=== PATIENT | female | born 1995 | race Caucasian/White ===

== ENCOUNTER 2018-06-05 20:34 | Emergency (ER) | payer MEDICAID, SELFPAY ==
[2018-06-05 20:41] VITALS: BP 141/75; PULSE 77; RESP 16; TEMP 37; O2SAT 98
--- NOTE | 2018-06-05 20:51 | ED.GENADUL ---
Disposition Clinical Impression: Palatal mass Disposition: HOME Condition: Stable Instructions: Lipoma (GEN) Additional Instructions: You were given instructions regarding a lipoma which is a fatty growth. You may not have a lipoma. At this point in time the differential diagnosis includes cyst, adenoma, impacted tooth, local tissue inflammation due to trauma or infection, or another type of hard palate mass. You may not need antibiotics, but since the area is painful, you may be developing an early infection. Follow-up with your dentist next week for reevaluation and for referral to oral surgery if indicated. Return to the emergency department with any worsening or new concerning symptoms such as difficulty swallowing, fever, or any other concerns. Prescriptions: Penicillin V Potassium 500 mg PO QID 7 Days tablet Medical Decision Making - Medical Decision Making 22 yo female who presents with tender hard palate mass for the past 2 days. It is approximately 1 x 1 cm tender soft mass noted to be behind the bicuspid and lateral incisor on the right upper jaw. It is not in the midline making torus palatinus unlikely. There is no dental trauma or dental abscess. The area appears soft but does not appear fluctuant or indurated and she has no fever or dental pain making abscess unlikely. Her oropharynx is normal to inspection and uvula midline. She appears nontoxic. Differential diagnosis includes cyst, adenoma, impacted tooth. The area appears soft and somewhat mobile and is not indurated, making malignancy less likely however further specialist evaluation can assist in this diagnosis. As she states it has grown in size over the past 2 days, will give a dose of decadron to help with any further inflammation. She is currently on her menses and has nexplanon and denies chance of . I explained that the increase in size can be due to local irritation. She denies any known foreign body of food or trauma to area. She has a local dentist in [place]. She was instructed to call them next week to schedule a follow-up appointment for reevaluation and for referral to oral surgery if indicated. As the area is tender, this can be due to local irritation rather than infection, but we will send home with a prescription for penicillin to start for risk for early infection. Patient was instructed to return here with any concerns. History of Present Illness - General Chief complaint: DentalOral Stated complaint: ORAL ISSUE Time Seen by Provider: 06/05/18 20:35 Source: patient Mode of arrival: ambulatory Limitations: no limitations - History of Present Illness Initial comments: Patient is a 22-year-old female who presents with a tender lump on the upper part of her mouth near her teeth for the past 2 days. Patient states the area has grown in size since she first noticed it. States she feels like eating irritates it and causes more pain when her tongue rubs against it. Patient denies known fever, difficulty swallowing, difficulty breathing, dental pain, dental trauma, or previous similar history. - Related Data Etonogestrel [Nexplanon] 68 mg SQ ONCE #1 implant 01/27/18 Penicillin V Potassium 500 mg PO QID 7 Days tablet 06/05/18 Allergies Allergy/AdvReac Type Severity Reaction Status Date / Time hydrocodone AdvReac Nausea Unverified 01/27/18 15:15 environmental allergies Allergy Mild iching, Uncoded 05/28/18 09:25 rashes Review of Systems Constitutional: denies: chills, fever Eyes: denies: eye pain ENT: denies: ear pain, throat pain, dental pain Respiratory: denies: cough, shortness of breath Cardiovascular: denies: chest pain, dyspnea on exertion Gastrointestinal: denies: abdominal pain, nausea, vomiting Genitourinary: denies: urgency, dysuria, frequency Musculoskeletal: denies: back pain Skin: denies: rash, lesions Neurological: denies: headache, weakness, numbness Past Medical History - Past Medical History Medical history: no medical history Surgical history: appendectomy - Social History Smoking status: never smoker Alcohol use: none Drug use: none General Exam - General Limitations: no limitations General appearance: alert, in no apparent distress - Eye Eye exam: Present: EOMI - ENT ENT exam: Present: normal orophraynx, mucous membranes moist, TM's normal bilaterally, other (approximate 1 x 1 cm soft mass noted in the right upper hard palate behind cuspid and lateral incisor. The area is tender to palpation but there is no bleeding, fluctuance, induration or discharge. There is no surrounding dental trauma, dental caries, or dental abscess. Normal posterior pharynx.) - Neck Neck exam: Present: normal inspection. Absent: lymphadenopathy - Respiratory Respiratory exam: Absent: respiratory distress - Cardiovascular Cardiovascular Exam: Present: regular rate - Neurological Exam Neurological exam: Present: alert, oriented X3 - Psychiatric Psychiatric exam: Present: normal affect - Skin Skin exam: Present: warm, dry, intact Course Vital Signs - 24 hr 06/05/18 20:41 Temperature 98.6 F Pulse 77 Respiratory 16 Rate Blood Pressure 141/75 Pulse Oximetry 98
[2018-06-05] MEDS: Dexamethasone 10 MG/ML VIAL PO (21:03)
== END 2018-06-05 21:07 | disposition home or self-care (01) ==
LOC: ER 06-06 10:14
PROVIDERS: Emergency Provider Physician Assistant; PCP Family Medicine
DX: R22.0 Localized swelling, mass and lump, head (principal)
CPT/HCPCS: 99283; J1100

== ENCOUNTER 2018-11-08 19:22 | Emergency (ER) | payer MEDICAID, SELFPAY ==
[2018-11-08 19:28] VITALS: BP 123/77; PULSE 68; RESP 16; TEMP 36.6; O2SAT 98
--- NOTE | 2018-11-08 19:43 | W.ED.GENAD ---
Discharge Plan Disposition Patient Disposition: HOME Condition: Improving Discharge Details Chief Complaint: Abd Prob Clinical Impression: Diarrhea, Abdominal pain Primary Care Provider: Raimundo Wallace ED Provider: Nguyen Power Home Meds and New Rx's Prescriptions: New famotidine [Pepcid] 20 mg tablet 20 mg PO DAILY 14 Days Qty: 14 RF: 0 dicyclomine 20 mg tablet 20 mg PO QID PRN (Reason: pain) Qty: 8 RF: 0 Continued Nexplanon 68 MG implant 68 mg SQ ONCE Qty: 1 RF: 0 Discharge Instructions Instructions: Acute Diarrhea (ED), Abdominal Pain (ED) Additional Instructions: Drink plenty of fluids and get plenty of rest. Follow a bland diet of bananas, rice, applesauce, toast. Take the Pepcid and Bentyl as needed and directed for pain. Call your primary care doctor tomorrow to schedule a follow-up appointment for reevaluation. Return immediately to the emergency department with any worsening or new concerning symptoms. Discharge Data Discharge Date/Time-TO BE ENTERED AT DEPARTURE: 11/08/18 21:16 Discharge Physician: Nguyen Power Medical Decision Making <Clive Pastrana MD - Last Filed: 11/08/18 19:45> 23-year-old female presents with 10-14 days of left upper quadrant essentially constant radiates at times to her left lower quadrant and is associated with loose watery stool. She denies any inciting or modifying factors. She arrives with normal vital signs, tenderness left lower quadrant of her abdomen. Differential diagnosis includes gastritis, biliary disease, pancreatitis, less likely an atypical presentation of diverticulitis. IV placed, labs obtained, patient given proton pump inhibitor, antiemetic, fluid bolus. Patient seen just prior to change of shift please see Dr. Power's note regarding details of her diagnostic findings and response to therapy. <Nguyen Power DO - Last Filed: 11/10/18 10:24> Medical Records Medical records reviewed: Yes I reviewed the patient's medical records. Lab Data Lab results reviewed: Yes I reviewed the patient's lab results. Laboratory Tests Range/Units 11/08/18 11/08/18 11/08/18 19:55 20:07 20:07 WBC (4.4-10.8) k/cumm RBC (4.00-5.20) m/cumm Hgb (12.0-15.5) g/dL Hct (36.0-46.0) % MCV (80-95) fL MCH (27.0-33.0) pg MCHC (32.0-36.0) g/dL RDW (11.7-14.6) % Plt Count (130-400) x1000/uL MPV (8.0-11.0) fL Immature Gran % Neutrophils % Lymphocytes % Monocytes % Eosinophils % Basophils % Absolute Neutrophils (1.2-6.7) k/cumm Absolute Lymphocytes (1.2-3.4) k/cumm Absolute Monocytes (0.11-0.7) k/cumm Absolute Eosinophils (0.0-0.7) k/cumm Absolute Basophils (0.0-0.2) k/cumm Sodium (136-145) mmol/L 137 Potassium (3.5-5.1) mmol/L 3.7 Chloride (98-107) mmol/L 103 Carbon Dioxide (21.0-32.0) mmol/L 27.2 Anion Gap (3-11) mmol/L 6.8 BUN (7-18) mg/dL 15 Creatinine (0.55-1.02) mg/dL 0.79 Estimated GFR/1.73 m2 (mL/min/1.73m2) >= 60.00 Glucose (70-100) mg/dL 93 Calcium (8.5-10.1) mg/dL 8.8 Magnesium (1.8-2.4) mg/dL 2.3 Total Bilirubin (0.2-1.0) mg/dL 0.3 AST (15-37) U/L 21 ALT (12-78) U/L 27 Alkaline Phosphatase (46-116) U/L 92 Total Protein (6.4-8.2) g/dL 7.9 Albumin (3.4-5.0) g/dL 4.3 Lipase (73-393) U/L 100 Urine Color (Yellow) Yellow Urine Clarity Clear Urine pH (5-8) 6.5 Ur Specific Vanlue (1.005-1.025) >= 1.030 H Urine Protein (Negative) mg/dL Negative Urine Ketones (Negative) mg/dL Negative Urine Blood (Negative) Negative Urine Nitrite (Negative) Negative Urine Bilirubin (Negative) Negative Urine Urobilinogen (Up TO 0.2) EU/dL 0.2 Ur Leukocyte Esterase (Negative) Negative Urine Glucose (Negative) mg/dL Negative Range/Units 11/08/18 20:07 WBC (4.4-10.8) k/cumm 6.12 RBC (4.00-5.20) m/cumm 4.61 Hgb (12.0-15.5) g/dL 14.0 Hct (36.0-46.0) % 40.2 MCV (80-95) fL 87.2 MCH (27.0-33.0) pg 30.4 MCHC (32.0-36.0) g/dL 34.8 RDW (11.7-14.6) % 12.8 Plt Count (130-400) x1000/uL 347 MPV (8.0-11.0) fL 8.9 Immature Gran % 0.2 Neutrophils % 43.8 Lymphocytes % 40.2 Monocytes % 12.3 Eosinophils % 2.8 Basophils % 0.7 Absolute Neutrophils (1.2-6.7) k/cumm 2.69 Absolute Lymphocytes (1.2-3.4) k/cumm 2.46 Absolute Monocytes (0.11-0.7) k/cumm 0.75 H Absolute Eosinophils (0.0-0.7) k/cumm 0.17 Absolute Basophils (0.0-0.2) k/cumm 0.04 Sodium (136-145) mmol/L Potassium (3.5-5.1) mmol/L Chloride (98-107) mmol/L Carbon Dioxide (21.0-32.0) mmol/L Anion Gap (3-11) mmol/L BUN (7-18) mg/dL Creatinine (0.55-1.02) mg/dL Estimated GFR/1.73 m2 (mL/min/1.73m2) Glucose (70-100) mg/dL Calcium (8.5-10.1) mg/dL Magnesium (1.8-2.4) mg/dL Total Bilirubin (0.2-1.0) mg/dL AST (15-37) U/L ALT (12-78) U/L Alkaline Phosphatase (46-116) U/L Total Protein (6.4-8.2) g/dL Albumin (3.4-5.0) g/dL Lipase (73-393) U/L Urine Color (Yellow) Urine Clarity Urine pH (5-8) Ur Specific Vanlue (1.005-1.025) Urine Protein (Negative) mg/dL Urine Ketones (Negative) mg/dL Urine Blood (Negative) Urine Nitrite (Negative) Urine Bilirubin (Negative) Urine Urobilinogen (Up TO 0.2) EU/dL Ur Leukocyte Esterase (Negative) Urine Glucose (Negative) mg/dL HPI <Clive Pastrana MD - Last Filed: 11/08/18 19:45> General Mode of arrival: ambulatory. Date/Time Provider Initiated Documentation: 11/08/18 19:25. Limitations to Documentation: no limitations. Information obtained by: patient. History of Present Illness 23 year old F presents to the emergency department with the chief complaint of Epigastric and left upper quadrant abdominal pain over 2 weeks time, described as moderate, Quality is described as aching and dull, and is localized to the abdomen and left. Patient distal. and it has been constant. No relieving factors improve symptom(s), No exacerbating factors reported . Patient notes other (Loose watery stool). Patient did receive the following treatments prior to arrival, none Related Data Home Medications Medication Instructions Recorded Confirmed Nexplanon 68 mg SQ ONCE #1 implant 01/27/18 11/09/18 dicyclomine 20 mg PO QID PRN #8 tab 11/08/18 11/09/18 famotidine [Pepcid] 20 mg PO DAILY 14 Days #14 tab 11/08/18 11/09/18 Previous Rx's Medication Instructions Recorded dicyclomine 20 mg PO QID PRN #8 tab 11/08/18 famotidine [Pepcid] 20 mg PO DAILY 14 Days #14 tab 11/08/18 Allergies Allergy/AdvReac Type Severity Reaction Status Date / Time hydrocodone AdvReac Nausea Verified 11/09/18 10:18 environmental allergies Allergy Mild iching, Uncoded 11/09/18 10:18 rashes General Stated Complaint: Abd Prob SATYA: 3 Review of Systems <Clive Pastrana MD - Last Filed: 11/08/18 19:45> Review of Systems 8 systems reviewed and otherwise negative PFSH <Clive Pastrana MD - Last Filed: 11/08/18 19:45> Medical History Anxiety Surgical History Tonsillectomy Family History Mother No problems noted. Father No problems noted. Brother No problems noted. Social History household members: family housing: house lives independently: Yes current occupational status: employed Smoking/Tobacco Use Status: Never alcohol intake: never Exam <Clive Pastrana MD - Last Filed: 11/08/18 19:45> Narrative Exam Narrative: GEN: awake, alert, oriented 3. Pleasant, well groomed, interactive. HEAD: Normocephalic, atraumatic ENT: Mucous membranes moist, oropharynx unremarkable, External ear exam unremarkable EYES: PERRL, EOMI NECK: Full ROM, no MARLYN, no menigismus CHEST/RESP: Nontender, clear to auscultation bilateral, no wheeze/rhonchi/rales CARDIOVASCULAR: RRR, no murmur, rub abhijeet. 2+ Rad pulse bilateral ABDOMEN: Soft, tender in the left upper quadrant without rebound or guard, no mass. +Bowel sounds EXT: Full ROM, no edema, no rash Neuro: Grossly normal neurologic exam, conversant, interactive. Psych: Speech fluent, thoughts congruent, affect normal Course <Clive Pastrana MD - Last Filed: 11/08/18 19:45> Vital Signs Temperature 36.6 C 11/08/18 19:28 Pulse 68 11/08/18 19:28 Respiratory Rate 16 11/08/18 19:28 Blood Pressure 123/77 11/08/18 19:28 Pulse Oximetry 98 11/08/18 19:28 Temperature 36.6 C 11/08/18 19:28 Temperature Source Temporal Artery Scan 11/08/18 19:28 Pulse 68 11/08/18 19:28 Respiratory Rate 16 11/08/18 19:28 Respiratory Effort Non-Labored 11/08/18 19:28 Blood Pressure 123/77 11/08/18 19:28 Blood Pressure Position Sitting 11/08/18 19:28 Pulse Oximetry 98 11/08/18 19:28 Oxygen Delivery Method Room Air 11/08/18 19:28 Oxygen Flow Rate 0 11/08/18 19:28 Pain Level 7 11/08/18 19:28 Sign Out <Clive Pastrana MD - Last Filed: 11/08/18 19:45> Sign Out Data: Sign Out Comment: Followup labs, response to tx Last updated by Clive Pastrana MD at 11/08/18 19:46 Post-Handoff Eval: Labs reviewed and unremarkable. Normal white blood cell count and electrolytes, no evidence of infection on urinalysis. On reassessment of abdomen, it is soft, nontender and patient states she feels much better and is requesting to go home. At this point in time, I do not see any indication for CT imaging and patient is agreeable and would rather hold on CT at this time. Patient was able to give a stool sample here, will send for bacterial pathogens and ova and parasite. We will send home with a prescription for Pepcid and bentyl for pain. Patient instructed to call her primary care doctor tomorrow and to return here at any time if worse, including fever, worsening pain or any other concerns.
[2018-11-08 20:04] LABS: Bilirubin Negative (Negative); Blood Negative (Negative); Clarity Clear; Glucose Negative (Negative); Ketones Negative (Negative); Leukocyte Esterase Negative (Negative); Nitrite Negative (Negative); Specific Gravity >= 1.030 (1.005-1.025); Urobilinogen 0.2 EU/dL (Up TO 0.2); pH 6.5 (5-8)
[2018-11-08 20:13] LABS: Abs Immature Grans 0.01 k/cumm (0.0-0.09); Absolute Basophil Count 0.04 k/cumm (0.0-0.2); Absolute Eosinophil Count 0.17 k/cumm (0.0-0.7); Absolute Lymphocyte Count 2.46 k/cumm (1.2-3.4); Absolute Monocyte Count 0.75 k/cumm (0.11-0.7); Absolute Neutrophil Count 2.69 k/cumm (1.2-6.7); Basophils % 0.7; Eosinophils % 2.8; HCT 40.2 % (36.0-46.0); Immature Grans % 0.2; Lymphocytes % 40.2; Mean Corp. HGB Concentration 34.8 g/dL (32.0-36.0); Mean Corpuscular Hemoglobin 30.4 pg (27.0-33.0); Mean Corpuscular Volume 87.2 fL (80-95); Mean Platelet Volume 8.9 fL (8.0-11.0); Monocytes % 12.3; Neutrophils % 43.8; Platelet Count 347 x1000/uL (130-400); RBC 4.61 m/cumm (4.00-5.20); RBC Distribution Width 12.8 % (11.7-14.6); White Blood Cell Count 6.12 k/cumm (4.4-10.8)
[2018-11-08] MEDS: Normal Saline 1,000 ML 1000 ML IV (20:18)
[2018-11-08] MEDS: Ondansetron 4 MG/2 ML VIAL IVP (20:19)
[2018-11-08] MEDS: Pantoprazole 40 MG VIAL IVP (20:20)
[2018-11-08 20:22] LABS: Lipase 100 U/L (73-393); Magnesium 2.3 mg/dL (1.8-2.4)
[2018-11-08 20:26] LABS: ALT 27 U/L (12-78); AST 21 U/L (15-37); Albumin 4.3 g/dL (3.4-5.0); Alkaline Phosphatase 92 U/L (46-116); Anion Gap 6.8 mmol/L (3-11); BUN 15 mg/dL (7-18); Bilirubin, Total 0.3 mg/dL (0.2-1.0); CO2 27.2 mmol/L (21.0-32.0); CREATININE 0.79 mg/dL (0.55-1.02); Calcium 8.8 mg/dL (8.5-10.1); Chloride 103 mmol/L (98-107); Glucose 93 mg/dL (70-100); Potassium 3.7 mmol/L (3.5-5.1); Sodium 137 mmol/L (136-145); Total Protein 7.9 g/dL (6.4-8.2)
[2018-11-08 21:17] VITALS: BP 119/67; PULSE 62; RESP 16; TEMP 36.6; O2SAT 100
[2018-11-10 11:25] LABS: Campylobacter PCR SEE COMMENTS; Salmonella PCR SEE COMMENTS; Shiga Toxin PCR SEE COMMENTS; Shigella/Enteroinvasive Ecoli SEE COMMENTS
== END 2018-11-08 21:16 | disposition home or self-care (01) ==
PROVIDERS: Emergency Medicine; Emergency Provider Physician Assistant; PCP Family Medicine
DX: R19.7 Diarrhea, unspecified (principal); R10.32 Left lower quadrant pain
CPT/HCPCS: 36415; 80053; 81025; 83690; 87046; 87505; 96361; 96374; 96375; 99284; 81003; 83735; 85025; 87177; J2405

== ENCOUNTER 2018-11-09 10:04 | Emergency (ER) | payer MEDICAID, SELFPAY ==
[2018-11-09 10:15] VITALS: BP 116/61; PULSE 79; RESP 16; TEMP 37; O2SAT 99
--- NOTE | 2018-11-09 10:39 | ED.GENADUL_ITS ---
Discharge Plan Disposition Patient Disposition: HOME Discharge Details Chief Complaint: Abd Prob Primary Care Provider: Raimundo Wallace ED Provider: Dean Dhillon Home Meds and New Rx's Prescriptions: Continued Nexplanon 68 MG implant 68 mg SQ ONCE Qty: 1 RF: 0 famotidine [Pepcid] 20 mg tablet 20 mg PO DAILY 14 Days Qty: 14 RF: 0 dicyclomine 20 mg tablet 20 mg PO QID PRN (Reason: pain) Qty: 8 RF: 0 Discharge Data Discharge Date/Time-TO BE ENTERED AT DEPARTURE: 11/09/18 15:15 Medical Decision Making Patient presenting the emergency department for chief complaint of abdominal pain. Patient has midline epigastric tenderness otherwise unremarkable examination. Patient has had multiple visits to the emergency department including one last night with labs done but no CT imaging. Plan to perform CT imaging but no Arriaga sign, no McBurney's point tenderness, hypoactive bowel sounds. Pending results patient given GI cocktail Review of CT imaging shows small amount of fluid in the cul-de-sac likely physiologic otherwise no other acute findings noted. Patient reassessed and did state improvement after GI cocktail. Lab results from yesterday's visit were reviewed and show no worrisome findings so I do not feel that labs need to be repeated today his biggest concern is for GERD versus gastritis. Patient does state frequent eating of spicy foods but also do seem to upset stomach. Concern for possibly gastritis so patient placed on Zantac twice daily and informed to follow-up with primary care provider for reassessment in the next 1-2 weeks. If this does not improve patient symptoms she may need upper endoscopy or further studies or testing. After discussion of diagnosis and plan of care patient has no further needs, questions, or concerns and states clear understanding to return to the emergency department for any worsening symptoms. HPI General Mode of arrival: ambulatory . Date/Time Provider Initiated Documentation: 11/09/18 10:06 . Limitations to Documentation: no limitations . Information obtained by: patient, RN notes reviewed and old records reviewed . History of Present Illness 23 year old F presents to the emergency department with the chief complaint of Abd pain, described as moderate, with intensity rated at 7. Quality is described as sharp, and is localized to the abdomen. Patient started experiencing this week(s) (3) and it has been intermittent. Eating worsens symptoms . Patient did receive the following treatments prior to arrival, none Related Data Home Medications Medication Instructions Recorded Confirmed Nexplanon 68 mg SQ ONCE #1 implant 01/27/18 11/09/18 dicyclomine 20 mg PO QID PRN #8 tab 11/08/18 11/09/18 famotidine [Pepcid] 20 mg PO DAILY 14 Days #14 tab 11/08/18 11/09/18 Previous Rx's Medication Instructions Recorded dicyclomine 20 mg PO QID PRN #8 tab 11/08/18 famotidine [Pepcid] 20 mg PO DAILY 14 Days #14 tab 11/08/18 Allergies Allergy/AdvReac Type Severity Reaction Status Date / Time hydrocodone AdvReac Nausea Verified 11/09/18 10:18 environmental allergies Allergy Mild iching, Uncoded 11/09/18 10:18 rashes General Stated Complaint: Abd Prob SATYA: 3 Review of Systems Constitutional Denies chills, Denies fever(s) and Reports poor appetite Cardiovascular Denies chest pain and Denies dyspnea Respiratory Denies cough and Denies dyspnea Gastrointestinal Reports as per HPI, Reports abdominal pain, Denies melena, Denies change in bowel habits, Denies constipation, Denies diarrhea, Reports nausea and Reports vomiting Genitourinary Denies hematuria, Denies urinary incontinence, Denies urinary hesitancy and Denies urinary urgency Integumentary/Breasts Denies rash PFSH Medical History Anxiety Surgical History Tonsillectomy Family History Mother No problems noted. Father No problems noted. Brother No problems noted. Social History household members: family housing: house lives independently: Yes current occupational status: employed Smoking/Tobacco Use Status: Never alcohol intake: never Exam Const General: cooperative Orientation: alert, awake and oriented x3 Resp Effort & Inspection: normal respiratory effort and able to speak in complete s entences Auscultation: clear to auscultation bilaterally Cardio Rate: regular rate Rhythm: regular rhythm Heart Sounds: S1 normal and S2 normal GI Palpation: soft, no hepatosplenomegaly, not firm, no guarding, no masses, no pulsatile masses, not rigid, no splenomegaly and tender in the epigastrum; not at McBurney's point, Arriaga's sign negative, with no rebound tenderness and Rovsing's sign negative Auscultation: normal bowel sounds Back/Spine/Pelvis Back: no CVA tenderness Neuro General: alert, awake, oriented x3, gait normal and moves all extremities Course Vital Signs Temperature 37 C 11/09/18 10:15 Pulse 79 11/09/18 10:15 Respiratory Rate 16 11/09/18 10:15 Blood Pressure 116/61 11/09/18 10:15 Pulse Oximetry 99 11/09/18 10:15 Temperature 37 C 11/09/18 10:15 Temperature Source Skin 11/09/18 10:15 Pulse 79 11/09/18 10:15 Respiratory Rate 16 11/09/18 10:15 Respiratory Effort Non-Labored 11/09/18 10:15 Blood Pressure 116/61 11/09/18 10:15 Blood Pressure Position Sitting 11/09/18 10:15 Pulse Oximetry 99 11/09/18 10:15 Oxygen Delivery Method Room Air 11/09/18 10:15 Oxygen Flow Rate 0 11/09/18 10:15 Pain Level 7 11/09/18 10:15
--- NOTE | 2018-11-09 10:48 | DI.CT_ITS ---
SYMPTOM/DIAGNOSIS: ABD PAIN ABDOMEN AND PELVIC CT: Comparison is made with abdomen ultrasound dated 08/07/15. The lung bases are clear. The liver, gallbladder, spleen, pancreas and adrenals are unremarkable. There is a physiologic amount of fluid in the pelvis. The urinary bladder is somewhat distended unremarkable. The uterus and ovaries are unremarkable. The distal small bowel and colon are not opacified with oral contrast. No inflammatory changes are seen. The appendix is not identified. There is high density material at the base of the cecum which could be related to previous appendectomy. There is a normal quantity of stool. No bony abnormalities are seen. IMPRESSION: Small amount of fluid in the cul-de-sac, likely physiologic.
[2018-11-09] MEDS: Ondansetron O.D.T. 4 MG TABEF PO (11:21)
[2018-11-09] MEDS: Omnipaque 350 MG/ML 100 ML BTL IJ (12:30)
[2018-11-09] MEDS: Omnipaque 350 MG/ML 50 ML BTL PO (12:31)
[2018-11-09] MEDS: Breeza Beverage 473 ML BTL PO ×2 (12:31→12:32)
[2018-11-09 14:58] VITALS: BP 98/54; PULSE 72; RESP 16; TEMP 37.3; O2SAT 99
[2018-11-09 15:16] VITALS: BP 98/54; PULSE 72; RESP 16; TEMP 37.3; O2SAT 99
== END 2018-11-09 15:15 | disposition home or self-care (01) ==
PROVIDERS: Emergency Provider Nurse Practitioner Family; PCP Family Medicine
DX: K52.9 Noninfective gastroenteritis and colitis, unspecified (principal)
CPT/HCPCS: 99285; 74177; 99284; J3490; Q9967

== ENCOUNTER 2019-03-09 10:56 | Emergency (ER) | payer MEDICAID, SELFPAY ==
[2019-03-09 10:59] VITALS: BP 125/66; PULSE 83; RESP 12; TEMP 36.8; O2SAT 97
--- NOTE | 2019-03-09 11:05 | ED.GENADUL_ITS ---
Discharge Plan Disposition Patient Disposition: HOME Condition: Stable Discharge Details Chief Complaint: Urinary Clinical Impression: Acute UTI Primary Care Provider: Raimundo Wallace ED Provider: Dean Dhillon Home Meds and New Rx's Prescriptions: New nitrofurantoin monohyd/m-cryst [Macrobid] 100 mg capsule 100 mg PO BID Qty: 10 RF: 0 Continued Nexplanon 68 MG implant 68 mg SQ ONCE Qty: 1 RF: 0 Discharge Instructions Instructions: Urinary Tract Infection in Women (ED) Additional Instructions: Return to the emergency department for any new or worsening symptoms such as fever chills, significant flank pain or further concerns. Otherwise take anabiotic's as prescribed and follow-up with your primary care provider for reassessment Referrals: Raimundo Wallace, [Primary Care Provider] - (As needed for reassessment) Medical Decision Making Patient presenting to the emergency department for chief complaint of bladder cramping, and urinary urgency with some slight burning with urination. Patient denies fever chills, nausea vomiting, flank pain. Physical exam shows some suprapubic and right lower quadrant tenderness otherwise unremarkable abdominal exam, no CVA tenderness, normal cardiac and respiratory exam. Patient does state previous appendectomy and family history of ovarian cyst. Given that patient mostly complains of bladder discomfort and denies any vaginal symptoms plan to check urinalysis and status. Urinalysis shows positive for blood, nitrate, and leukocyte esterase with significant WBCs. I feel that this correlates clinically with urinary tract infection. Patient placed upon Macrobid twice daily for 5 days. Return precautions discussed. After discussion of diagnosis and plan of care patient has no further needs, questions, or concerns and states clear understanding to return to the emergency department for any worsening symptoms. HPI General Date/Time Provider Initiated Documentation: 03/09/19 10:57 . History of Present Illness 23 year old F presents to the emergency department with the chief complaint of Bladder cramping, urgency, described as mild, with intensity rated at 4. Quality is described as aching, and is localized to the abdomen (Suprapubic/bladder). Patient started experiencing this day(s) (1) and it has been constant. No relieving factors improve symptom(s), No exacerbating factors reported . Patient notes no other symptoms.. Patient did receive the following treatments prior to arrival, none Related Data Home Medications Medication Instructions Recorded Confirmed Nexplanon 68 mg SQ ONCE #1 implant 01/27/18 03/09/19 nitrofurantoin monohyd/m-cryst 100 mg PO BID #10 cap 03/09/19 [Macrobid] Previous Rx's Medication Instructions Recorded nitrofurantoin monohyd/m-cryst 100 mg PO BID #10 cap 03/09/19 [Macrobid] Allergies Allergy/AdvReac Type Severity Reaction Status Date / Time hydrocodone AdvReac Nausea Verified 03/09/19 11:02 environmental allergies Allergy Mild iching, Uncoded 03/09/19 11:02 rashes General Stated Complaint: Urinary SATYA: 4 Review of Systems Constitutional Denies body ache(s), Denies chills, Denies fever(s) and Denies malaise Cardiovascular Denies chest pain Respiratory Reports system reviewed and no additional complaints, except as docu Gastrointestinal Denies abdominal pain, Denies nausea and Denies vomiting Genitourinary Reports as per HPI, Denies hematuria, Reports dysuria, Denies pelvic pain, Denies flank pain, Denies urinary incontinence, Denies urinary hesitancy, Reports urinary urgency, Denies vaginal discharge and Denies vaginal odor [facility] Social History Smoking/Tobacco Use Status: Never Alcohol Intake: never Drug use: Never Household members: family Housing: house Do you feel safe at home: Yes Do you feel safe in your relationship?: Yes Exam Const General: cooperative and no acute distress Orientation: alert, awake and oriented x3 Resp Effort & Inspection: normal respiratory effort and able to speak in complete sentences Auscultation: clear to auscultation bilaterally Cardio Rate: regular rate Rhythm: regular rhythm Heart Sounds: S1 normal and S2 normal GI Palpation: tender in the RLQ and suprapubicly Back/Spine/Pelvis Back: no CVA tenderness Neuro General: alert, awake and oriented x3 Extrem General: normal capillary refill Course Vital Signs Temperature 36.8 C 03/09/19 10:59 Pulse 83 03/09/19 10:59 Respiratory Rate 12 03/09/19 10:59 Blood Pressure 125/66 03/09/19 10:59 Pulse Oximetry 97 03/09/19 10:59 Temperature 36.8 C 03/09/19 10:59 Temperature Source Temporal Artery Scan 03/09/19 10:59 Pulse 83 03/09/19 10:59 Respiratory Rate 12 03/09/19 10:59 Respiratory Effort Non-Labored 03/09/19 11:00 Blood Pressure 125/66 03/09/19 10:59 Blood Pressure Position Sitting 03/09/19 10:59 Pulse Oximetry 97 03/09/19 10:59 Oxygen Delivery Method Room Air 03/09/19 10:59 Oxygen Flow Rate 0 03/09/19 10:59 Pain Level 4 03/09/19 11:01
[2019-03-09 11:32] LABS: Bilirubin Negative (Negative); Blood Large (Negative); Clarity Sl Cloudy; Glucose Negative (Negative); Ketones Negative (Negative); Leukocyte Esterase Small (Negative); Nitrite Positive (Negative); Specific Gravity >= 1.030 (1.005-1.025); Urobilinogen 0.2 EU/dL (Up TO 0.2); pH 5.5 (5-8)
[2019-03-09 11:40] LABS: WBC >50 HPF (0-5)
[2019-03-09 11:41] LABS: Bacteria Moderate HPF (Negative); C & S Indicated? Yes; Casts Negative LPF (Negative); Crystals Negative HPF (Negative); Epithelial Cells Few HPF (Negative); Mucus Negative (Negative); Other Cells Few Renal (Negative)
[2019-03-09 12:08] VITALS: BP 125/66; PULSE 83; RESP 12; TEMP 36.8; O2SAT 97
== END 2019-03-09 12:08 | disposition home or self-care (01) ==
PROVIDERS: Emergency Provider Nurse Practitioner Family; PCP Family Medicine
DX: N39.0 Urinary tract infection, site not specified (principal); B96.20 Unspecified Escherichia coli [E. coli] as the cause of diseases classified elsewhere
CPT/HCPCS: 81025; 87077; 99283; 81003; 81015; 87086; 87186

== ENCOUNTER 2019-06-18 12:47 | Emergency (ER) | payer MEDICAID, SELFPAY ==
[2019-06-18 12:50] VITALS: BP 122/65; PULSE 91; RESP 18; TEMP 37.1; O2SAT 98
--- NOTE | 2019-06-18 13:05 | ED.GENADUL_ITS ---
Discharge Plan Disposition Patient Disposition: HOME Condition: Stable Discharge Details Chief Complaint: DentalOral Clinical Impression: Abscess, dental Primary Care Provider: Raimundo Wallace ED Provider: Melo Cuevas Home Meds and New Rx's Prescriptions: New amoxicillin 500 mg tablet 500 mg PO TID Qty: 21 RF: 0 Continued omeprazole 20 mg capsule,delayed release(DR/EC) 20 mg PO DAILY RF: 0 paroxetine HCl 20 mg tablet 20 mg PO DAILY Qty: 30 RF: 2 Nexplanon 68 MG implant 68 mg SQ ONCE Qty: 1 RF: 0 loperamide [Imodium A-D] 1 mg/7.5 mL liquid 2 mg PO .COMPLEX PRN (Reason: diarrhea) RF: 0 Discharge Instructions Instructions: Dental Abscess (ED) Additional Instructions: follow up as scheduled with your dentist as scheduled if you have difficulty breathing, inability to swallow liquids or severe worsening pain return to the emergency department Medical Decision Making 24 yo female who comes in with several days of worsening right upper anterior tooth pain. Denies dyspnea or difficulty swallowing. Has an appointment on 06/24 with her dentist per pt. She has pain with percussion to the right upper incisor with some swelling posterior to the tooth. No submandibular swelling and normal oropharynx. She gave verbal consent and I tried to drain the abscess but was only able to get small amount of blood with an 18G needle. will start abx and have her f/u with her dentist Differential Diagnosis Differential Diagnosis: dental abscess, pulpitis HPI General Mode of arrival: ambulatory . Date/Time Provider Initiated Documentation: 06/18/19 12:51 . Limitations to Documentation: no limitations . Information obtained by: patient . History of Present Illness 24 year old F presents to the emergency department with the chief complaint of dental pain, described as moderate, and is localized to the mouth. Patient started experiencing this day(s) (4) and it has been constant. No relieving factors improve symptom(s), No exacerbating factors reported . Patient did receive the following treatments prior to arrival, none Related Data Home Medications Medication Instructions Recorded Confirmed Nexplanon 68 mg SQ ONCE #1 implant 01/27/18 06/18/19 omeprazole 20 mg capsule,delayed 20 mg PO DAILY 03/18/19 06/18/19 release paroxetine HCl 20 mg tablet 20 mg PO DAILY #30 tab 03/18/19 06/18/19 loperamide 1 mg/7.5 mL oral liquid 2 mg PO .COMPLEX PRN 04/22/19 06/18/19 amoxicillin 500 mg PO TID #21 tab 06/18/19 Previous Rx's Medication Instructions Recorded paroxetine HCl 20 mg tablet 20 mg PO DAILY #30 tab 03/18/19 amoxicillin 500 mg PO TID #21 tab 06/18/19 Allergies Allergy/AdvReac Type Severity Reaction Status Date / Time hydrocodone AdvReac Nausea Verified 06/18/19 12:54 environmental allergies Allergy Mild iching, Uncoded 06/18/19 12:54 rashes General Stated Complaint: DentalOral SATYA: 4 Review of Systems Review of Systems ROS Unobtainable: All systems reviewed & are unremarkable except as noted in HPI and below Constitutional Constitutional: Denies chills, Denies fever(s) and Denies weakness ENT Ears, Nose, Mouth, and Throat: Denies change in voice Cardiovascular Cardiovascular: Denies chest pain and Denies dyspnea Respiratory Respiratory: Denies cough and Denies dyspnea Gastrointestinal Gastrointestinal: Denies abdominal pain, Denies nausea and Denies vomiting Neurologic Neurologic: Denies weakness Allergic/Immunologic Allergic/Immunologic: Denies urticaria COUNT INCLUDES THE [facility] Social History Smoking/Tobacco Use Status: Never Alcohol Intake: never Drug use: Never Household members: family Housing: house Do you feel safe at home: Yes Do you feel safe in your relationship?: Yes Exam Const General: no acute distress Orientation: alert HENMT Head: normal to inspection Ears: external ears normal General nose exam: external nose normal Mouth: moist mucous membranes Eyes General: appearance normal, both eyes and all related structures Neck Neck: normal visual inspection Resp Effort & Inspection: normal respiratory effort and able to speak in complete s entences Cardio Rate: regular rate Skin General skin exam: no rashes or lesions noted Neuro General: alert and oriented x3 Extrem General: normal to inspection Psych Mental Status: mental status grossly normal Course Vital Signs Vital signs: Vital Signs Temperature 37.1 C 06/18/19 12:50 Pulse 91 H 06/18/19 12:50 Respiratory Rate 18 06/18/19 12:50 Blood Pressure 122/65 06/18/19 12:50 Pulse Oximetry 98 06/18/19 12:50 Temperature 37.1 C 06/18/19 12:50 Temperature Source Skin 06/18/19 12:50 Pulse 91 H 06/18/19 12:50 Respiratory Rate 18 06/18/19 12:50 Respiratory Effort Non-Labored 06/18/19 12:53 Blood Pressure 122/65 06/18/19 12:50 Blood Pressure Position Sitting 06/18/19 12:50 Pulse Oximetry 98 06/18/19 12:50 Oxygen Delivery Method Room Air 06/18/19 12:50 Oxygen Flow Rate 0 06/18/19 12:50 Pain Level 7 06/18/19 12:53
[2019-06-18 13:10] VITALS: BP 122/65; PULSE 91; RESP 18; TEMP 37.1; O2SAT 98
== END 2019-06-18 13:12 | disposition home or self-care (01) ==
PROVIDERS: Emergency Provider Emergency Medicine; PCP Family Medicine
DX: R68.84 Jaw pain (principal); K04.7 Periapical abscess without sinus
CPT/HCPCS: 10160

== ENCOUNTER 2020-12-08 15:20 | Outpatient (REF) | payer OTHER, SELFPAY ==
--- NOTE | 2020-12-08 15:00 | PAPFT_PTH ---
PATIENT: Tamara Winter LOC: [facility] U#:[id number] AGE/SX: 25/F ROOM: RE12/08/[address]: CAMILO Solis : 1995 BED: DIS: 12/08/2020 SPEC #: [id number] RECD: 12/08/20 17:10 STATUS: XENA VERDUGO #: [id number] MIKE: 12/08/20 15:[address]: Fidelina Garcia DEPT: [facility] Cytology RECD BY: Nasreen Oh ENTERED: 12/08/20 17:10 SP TYPE: PAPFT OTHR DR: Raimundo Wallace DO Tissues: 1 - CX/ENDOCX FOR PAP SMEARS Procedures: PAP THIN PREP/[facility] Screening Comments: [id number]
[2020-12-11 15:27] LABS: Chlamydia Result Negative (Negative); GC Result Negative (Negative)
== END 2020-12-08 15:21 | disposition home or self-care (01) ==
LOC: LBN 15:20
PROVIDERS: PCP Family Medicine; Visit Provider Nurse Practitioner Family
DX: Z11.3 Encounter for screening for infections with a predominantly sexual mode of transmission (principal); Z12.4 Encounter for screening for malignant neoplasm of cervix
CPT/HCPCS: 87491; 87591; 88142

== ENCOUNTER 2021-07-02 09:40 | Emergency (ER) | payer SELFPAY ==
[2021-07-02 09:57] VITALS: BP 119/65; PULSE 83; RESP 16; TEMP 37.1; O2SAT 97
[2021-07-02 10:01] VITALS: BP 114/64; PULSE 78; O2SAT 98
[2021-07-02 10:02] VITALS: O2SAT 98
--- NOTE | 2021-07-02 10:45 | DI.US_ITS ---
Exam(s) US ABD PELV TRANSVAG NON-OB EXAM: US ABD PELV TRANSVAG NON-OB CLINICAL HISTORY: pelvic pain TECHNIQUE: Ultrasound of the abdomen and pelvis was performed both transabdominal and transvaginal. COMPARISON: US ABDOMEN ULTRASOUND (P) from 08/07/2015 FINDINGS: ABDOMEN: There is no ascites evident. LIVER: There are no hepatic lesions evident nor obvious dilatation of intrahepatic ducts. GALLBLADDER/BILIARY: There are no gallstones. No gallbladder wall edema nor pericholecystic fluid. The common hepatic duct isnot dilated, measuring 3-4mm at the level of virgie hepatis. PANCREAS: There is no evidence of pancreatic mass nor dilatation of the pancreatic duct. SPLEEN: The spleen is not enlarged and there are no intrasplenic lesions evident. KIDNEYS:Kidneys exhibit normal size with no evidence of solid mass, calculus, nor hydronephrosis. No cortical cysts evident. ABDOMINAL AORTA: There is no evidence of abdominal aortic aneurysm. IVC: Normal diameter where visualized. UTERUS: Measures 6.8 cm length x 0.7 cm AP x 4 point cm wide. There are no uterine fibroids. Endometrial thickness measures 3.7 mm. There is an IUD noted within the endometrial canal. This appears to be in satisfactory position. CERVIX: There are no obvious nabothian cysts. RIGHT OVARY: Measures 3 x 1.9 x 2.0 cm Contains 2 findings. There is a small 1.1 x 1.1 cm cyst. There is also a new 1.9 x 1.7 x 1.7 cm par tially hemorrhagic cyst, possibly corpus luteal. LEFT OVARY: Measures 2.7 x 1.8 x 1.2 cm No significant cysts nor masses evident in the left ovary. CUL-DE-SAC: No free fluid evident. IMPRESSION: 1. No evidence of cholelithiasis nor dilatation of the biliary tree. 2. No other significant ultrasound findings in the upper abdomen. 3. There is no ascites. 4. IUD is in satisfactory position in the endometrial canal 5. 17 x 19 millimeter hemorrhagic/corpus luteal cyst in the right ovary. There is also an [address] follicular cyst in the right ovary. No significant left ovarian findings. 6. No free fluid evident in the adnexal regions and cul-de-sac. DATA REPOSITORY:
[2021-07-02 11:02] LABS: Abs Immature Grans 0.01 10^3/uL (0.0-0.06); Absolute Basophil Count 0.04 10^3/uL (0.0-0.2); Absolute Eosinophil Count 0.15 10^3/uL (0.0-0.7); Absolute Neutrophil Count 2.43 10^3/uL (1.2-6.7); Basophils % 0.9; Eosinophils % 3.2; HCT 41.8 % (36.0-46.0); Immature Grans % 0.2; Lymphocytes % 30.2; MCH 29.7 pg (27.0-33.0); MCHC 33.5 % (32.0-36.0); MCV 88.7 fL (80-95); MPV 8.8 fL (8.0-11.0); Neutrophils % 52.5; Nucleated RBC 0 %; Platelet Count 388 10^3/uL (130-400); RBC 4.71 10^6/uL (3.93-5.22); RDW-SD 39.1 fL; WBC 4.63 10^3/uL (4.4-10.8)
[2021-07-02 11:04] LABS: Bilirubin Negative (Negative); Blood Trace-intact (Negative); Clarity Clear (Clear); Glucose Negative (Negative); Ketones Negative (Negative); Leukocyte Esterase Negative (Negative); Nitrite Negative (Negative); Specific Gravity 1.025 (1.005-1.025)
[2021-07-02 11:14] LABS: Bacteria Rare HPF (Negative); C & S Indicated? No; Casts 0-2 Hyaline LPF (Negative); Crystals Few Amorphous HPF (Negative); Epithelial Cells Moderate HPF (Negative); Mucus Negative (Negative); RBC 0-2 HPF (0-2); WBC Negative HPF (0-5)
[2021-07-02 11:16] LABS: ALT 22 U/L (14-59); AST 18 U/L (15-37); Albumin 4.2 g/dL (3.4-5.0); Alkaline Phosphatase 78 U/L (46-116); Anion Gap 6.5 mmol/L (3-11); BUN 13 mg/dL (7-18); Bilirubin, Total 0.6 mg/dL (0.2-1.0); CO2 29.5 mmol/L (21.0-32.0); CREATININE 0.9 mg/dL (0.55-1.02); Chloride 104 mmol/L (98-107); Glucose 90 mg/dL (74-106); Lipase 60 U/L (73-393); Potassium 3.8 mmol/L (3.5-5.1); Sodium 140 mmol/L (136-145); Total Protein 7.6 g/dL (6.4-8.2)
--- NOTE | 2021-07-02 11:38 | ED.GENADUL_ITS ---
Discharge Plan Disposition Patient Disposition: HOME Condition: Stable Discharge Details Clinical Impression: Hemorrhagic cyst of right ovary Primary Care Provider: Raimundo Wallace ED Provider: Anali Smart Home Meds and New Rx's Prescriptions: No Action Mirena 20 mcg/24 hours (5 yrs) 52 mg intrauterine device 1 device IY ONCE RF: 0 Discharge Instructions Instructions: Ovarian Cyst (ED) Additional Instructions: Please return immediately to the emergency department if you develop any new or worsening symptoms, if your condition does not improve as expected, or if you become otherwise concerned. It is extremely important that you call soon as possible to make an appointment to be seen in follow-up for this visit by your primary care doctor and [facility] as we discussed Referrals: Raimundo Wallace DO [Primary Care Provider] - Paula Judge MD [ [facility] STAFF PHYSICIAN] - Discharge Data Discharge Date/Time-TO BE ENTERED AT DEPARTURE: 07/02/21 13:28 Medical Decision Making Tmaara Winter is a 26 y/o woman with h/o migraine, anxiety who presented to the emergency department with lower abdominal/pelvic pain. On exam Pt is well and non-toxic appearing. Appears comfortable. Abdominal exam reveals mild TTP across suprapubic and right pelvic area without peritoneal signs. Concern for ovarian torsion, hemorrhagic cyst, /ectopic, other. Exam/hx at this time not c/w pelvic inflammatory disease, sepsis, acute aortic pathology, acute emergent intra-abdominal pathology. Plan for IV placement, screening labs, pelvic US. US shows partially hemorrhagic right ovarian cyst. Labs reviewed, Hgb 14, plts 388. On reassessment Pt reports that pain is entirely gone and she feels back to baseline. Given Pt's well appearance, resolution of symptoms, partially hemorrhagic cyst is the likely etiology of symptoms. No evidence of continued significant bleeding. Plan for outpt f/u with gynecology. I had a lengthy discussion with Patient regarding return to emergency department precautions, home care, and importance of outpatient follow-up. Pt verbalizes understanding of the plan and is amenable. Patient discharged to home with clear plan for outpatient follow- up. All questions were answered. Disposition decision was made weighing the risks and benefits of hospitalization versus outpatient treatment, the risk for further decompensation, and the patient's wishes. Medical Records Medical records reviewed: Yes I reviewed the patient's medical records. Imaging Data Radiologic Study: Attestation: I personally reviewed and interpreted this imaging study as follows: Radiologist's impression: EXAM: US ABD PELV TRANSVAG NON-OB CLINICAL HISTORY: pelvic pain TECHNIQUE: Ultrasound of the abdomen and pelvis was performed both transabdominal and transvaginal. COMPARISON: US ABDOMEN ULTRASOUND (P) from 08/07/2015 FINDINGS: ABDOMEN: There is no ascites evident. LIVER: There are no hepatic lesions evident nor obvious dilatation of intrahepatic ducts. GALLBLADDER/BILIARY: There are no gallstones. No gallbladder wall edema nor pericholecystic fluid. The common hepatic duct isnot dilated, measuring 3-4mm at the level of virgie hepatis. PANCREAS: There is no evidence of pancreatic mass nor dilatation of the pancreatic duct. SPLEEN: The spleen is not enlarged and there are no intrasplenic lesions evident. KIDNEYS:Kidneys exhibit normal size with no evidence of solid mass, calculus, nor hydronephrosis. No cortical cysts evident. ABDOMINAL AORTA: There is no evidence of abdominal aortic aneurysm. IVC: Normal diameter where visualized. UTERUS: Measures 6.8 cm length x 0.7 cm AP x 4 point cm wide. There are no uterine fibroids. Endometrial thickness measures 3.7 mm. There is an IUD noted within the endometrial canal. This appears to be in satisfactory position. CERVIX: There are no obvious nabothian cysts. RIGHT OVARY: Measures 3 x 1.9 x 2.0 cm Contains 2 findings. There is a small 1.1 x 1.1 cm cyst. There is also a new 1.9 x 1.7 x 1.7 cm partially hemorrhagic cyst, possibly corpus luteal. LEFT OVARY: Measures 2.7 x 1.8 x 1.2 cm No significant cysts nor masses evident in the left ovary. CUL-DE-SAC: No free fluid evident. IMPRESSION: 1. No evidence of cholelithiasis nor dilatation of the biliary tree. 2. No other significant ultrasound findings in the upper abdomen. 3. There is no ascites. 4. IUD is in satisfactory position in the endometrial canal 5. 17 x 19 millimeter hemorrhagic/corpus luteal cyst in the right ovary. There is also an 11 millimeter follicular cyst in the right ovary. No significant left ovarian findings. 6. No free fluid evident in the adnexal regions and cul-de-sac. Lab Data Lab results reviewed: Yes I reviewed the patient's lab results. Labs: Laboratory Tests Range/Units 07/02/21 07/02/21 07/02/21 10:06 10:20 10:20 WBC (4.4-10.8) 10^3/uL 4.63 RBC (3.93-5.22) 10^6/uL 4.71 Hgb (11.2-15.7) g/dL 14.0 Hct (36.0-46.0) % 41.8 MCV (80-95) fL 88.7 MCH (27.0-33.0) pg 29.7 MCHC (32.0-36.0) % 33.5 RDW (11.7-14.6) % 12.0 Plt Count (130-400) 10^3/uL 388 MPV (8.0-11.0) fL 8.8 Immature Gran % 0.2 Neutrophils % 52.5 Lymphocytes % 30.2 Monocytes % 13.0 Eosinophils % 3.2 Basophils % 0.9 Nucleated RBC % % 0 Absolute Neutrophils (1.2-6.7) 10^3/uL 2.43 Absolute Lymphocytes (1.2-3.4) 10^3/uL 1.40 Absolute Monocytes (0.1-0.8) 10^3/uL 0.60 Absolute Eosinophils (0.0-0.7) 10^3/uL 0.15 Absolute Basophils (0.0-0.2) 10^3/uL 0.04 Sodium (136-145) mmol/L 140 Potassium (3.5-5.1) mmol/L 3.8 Chloride (98-107) mmol/L 104 Carbon Dioxide (21.0-32.0) mmol/L 29.5 Anion Gap (3-11) mmol/L 6.5 BUN (7-18) mg/dL 13 Creatinine (0.55-1.02) mg/dL 0.9 Estimated GFR/1.73 m2 (mL/min/1.73m2) >= 60.00 Glucose (74-106) mg/dL 90 Calcium (8.5-10.1) mg/dL 9.0 Total Bilirubin (0.2-1.0) mg/dL 0.6 AST (15-37) U/L 18 ALT (14-59) U/L 22 Alkaline Phosphatase (46-116) U/L 78 Total Protein (6.4-8.2) g/dL 7.6 Albumin (3.4-5.0) g/dL 4.2 Lipase (73-393) U/L 60 Urine Color (Yellow) Yellow Urine Clarity (Clear) Clear Urine pH (5-8) 7.0 Ur Specific [place] (1.005-1.025) 1.025 Urine Protein (Negative) mg/dL Trace H Urine Ketones (Negative) mg/dL Negative Urine Blood (Negative) Trace-intact H Urine Nitrite (Negative) Negative Urine Bilirubin (Negative) Negative Urine Urobilinogen (Up TO 0.2) EU/dL 1.0 H Ur Leukocyte Esterase (Negative) Negative Urine RBC (0-2) HPF 0-2 Urine WBC (0-5) HPF Negative Ur Epithelial Cells (Negative) HPF Moderate Urine Crystals (Negative) HPF Few Amorphous Urine Bacteria (Negative) HPF Rare Urine Casts (Negative) LPF 0-2 Hyaline Urine Mucus (Negative) Negative Ur Culture Indicated? No Urine Glucose (Negative) mg/dL Negative HPI General Mode of arrival: ambulatory . Date/Time Provider Initiated Documentation: 07/02/21 10:20 . Limitations to Documentation: no limitations . Information obtained by: patient, RN notes reviewed and old records reviewed . HPI Narrative: Tamara Winter is a 26-year-old woman with history of migraine, anxiety presenting to emergency department with abdominal pain. Patient reports that this morning at approximately 8:00 she was walking when she had sudden onset pain across her pelvic area. Patient reports that pain has been worse with change in position, movement, improves with rest. Patient reports that pain feels similar to when she was diagnosed with appendicitis several years in the past. Patient reports that she has had no other abdominal surgeries aside from appendectomy. She denies any other pain, fever, vomiting, diarrhea, constipation, dysuria, vaginal discharge, vaginal bleeding, rash, numbness, weakness. Was previously in her usual state of health. Patient reports that pain well lying in stretcher at this point is minimal and located in her suprapubic region. Has IUD in place. Related Data Home Medications Medication Instructions Recorded Confirmed levonorgestrel 20 mcg/24 hours (6 1 device IY ONCE 05/23/20 07/09/21 yrs) 52 mg intrauterine device Allergies Allergy/AdvReac Type Severity Reaction Status Date / Time hydrocodone AdvReac Nausea Verified 07/09/21 09:52 environmental allergies Allergy Mild iching, Uncoded 07/09/21 09:52 rashes General Stated Complaint: Abd Prob SATYA: 3 Review of Systems Narrative: Constitutional: denies fevers Eyes: denies eye pain ENT: denies ear pain, dental pain, sore throat Cardiovascular: denies chest pain Respiratory: denies SOB, cough GI: denies vomiting, diarrhea, reports abdominal/pelvic pain : denies flank pain, dysuria MSK: denies back pain, neck pain, arthralgias, myalgias Skin: denies rash Neuro: denies headaches, numbness, weakness PFSH Medical History (Updated 07/02/21 @ 13:17 by Anali Smart MD) 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 Anxiety (07/14/14) Migraine without aura Surgical History Tonsillectomy Family History (Updated 12/08/20 @ 14:32 by Fidelina Garcia NP) Mother Heartburn Uterine fibroid Social History Smoking/Tobacco Use Status: Never Smoking risk assessment performed?: Yes Alcohol Intake: never Drug use: Never Household members: family Housing: house Do you feel safe at home: Yes Do you feel safe in your relationship?: Yes Exam Narrative Exam Narrative: Constitutional: well and [id number], pleasant, conversing normally HENT: head atraumatic/normocephalic/normal inspection, mucous membranes moist Eyes: conjunctiva normal, sclera normal, pupils 3mm b/l Neck: no stridor, normal ROM, trachea midline Resp: normal work of breathing, speaking in full sentences Cardio: normal rate, normal rhythm GI: abdomen soft, mild TTP across suprapubic area and right pelvic area, no rebound, no guarding, no McBPt TTP, neg murphys, non-distended Skin: warm, dry, normal color, no rash Neuro: alert, not altered, grossly non-focal, normal tone Ext: no edema, moving all extremities equally Psych: normal mood, normal affect, normal behavior Course Vital Signs Vital signs: Vital Signs Temperature 37.1 C 07/02/21 09:57 Pulse 83 07/02/21 09:57 Respiratory Rate 16 07/02/21 09:57 Blood Pressure 119/65 07/02/21 09:57 Pulse Oximetry 97 07/02/21 09:57 Temperature 37.1 C 07/02/21 09:57 Temperature Source Skin 07/02/21 09:57 Pulse 78 07/02/21 10:01 Respiratory Rate 16 07/02/21 09:57 Respiratory Effort Non-Labored 07/02/21 10:02 Blood Pressure 114/64 07/02/21 10:01 Blood Pressure Mean 77 07/02/21 10:01 Blood Pressure Position Supine 07/02/21 09:57 Pulse Oximetry 98 07/02/21 10:02 Oxygen Delivery Method Room Air 07/02/21 09:57 Oxygen Flow Rate 0 07/02/21 09:57 Pain Level 7 07/02/21 09:57 Lab/Test Results Lab/Test Results: Laboratory Tests Range/Units 07/02/21 07/02/21 07/02/21 10:06 10:20 10:20 WBC (4.4-10.8) 10^3/uL 4.63 RBC (3.93-5.22) 10^6/uL 4.71 Hgb (11.2-15.7) g/dL 14.0 Hct (36.0-46.0) % 41.8 MCV (80-95) fL 88.7 MCH (27.0-33.0) pg 29.7 MCHC (32.0-36.0) % 33.5 RDW (11.7-14.6) % 12.0 Plt Count (130-400) 10^3/uL 388 MPV (8.0-11.0) fL 8.8 Immature Gran % 0.2 Neutrophils % 52.5 Lymphocytes % 30.2 Monocytes % 13.0 Eosinophils % 3.2 Basophils % 0.9 Nucleated RBC % % 0 Absolute Neutrophils (1.2-6.7) 10^3/uL 2.43 Absolute Lymphocytes (1.2-3.4) 10^3/uL 1.40 Absolute Monocytes (0.1-0.8) 10^3/uL 0.60 Absolute Eosinophils (0.0-0.7) 10^3/uL 0.15 Absolute Basophils (0.0-0.2) 10^3/uL 0.04 Sodium (136-145) mmol/L 140 Potassium (3.5-5.1) mmol/L 3.8 Chloride (98-107) mmol/L 104 Carbon Dioxide (21.0-32.0) mmol/L 29.5 Anion Gap (3-11) mmol/L 6.5 BUN (7-18) mg/dL 13 Creatinine (0.55-1.02) mg/dL 0.9 Estimated GFR/1.73 m2 (mL/min/1.73m2) >= 60.00 Glucose (74-106) mg/dL 90 Calcium (8.5-10.1) mg/dL 9.0 Total Bilirubin (0.2-1.0) mg/dL 0.6 AST (15-37) U/L 18 ALT (14-59) U/L 22 Alkaline Phosphatase (46-116) U/L 78 Total Protein (6.4-8.2) g/dL 7.6 Albumin (3.4-5.0) g/dL 4.2 Lipase (73-393) U/L 60 Urine Color (Yellow) Yellow Urine Clarity (Clear) Clear Urine pH (5-8) 7.0 Ur Specific [place] (1.005-1.025) 1.025 Urine Protein (Negative) mg/dL Trace H Urine Ketones (Negative) mg/dL Negative Urine Blood (Negative) Trace-intact H Urine Nitrite (Negative) Negative Urine Bilirubin (Negative) Negative Urine Urobilinogen (Up TO 0.2) EU/dL 1.0 H Ur Leukocyte Esterase (Negative) Negative Urine RBC (0-2) HPF 0-2 Urine WBC (0-5) HPF Negative Ur Epithelial Cells (Negative) HPF Moderate Urine Crystals (Negative) HPF Few Amorphous Urine Bacteria (Negative) HPF Rare Urine Casts (Negative) LPF 0-2 Hyaline Urine Mucus (Negative) Negative Ur Culture Indicated? No Urine Glucose (Negative) mg/dL Negative POC Urine Test Start: 07/02/21 10:10 Freq: Status: Complete Protocol: Document 07/02/21 10:12 (Rec: 07/02/21 10:12 [id number]) Test(Urine)-POC POC- Test(urine) Negative POC- Test(urine) Negative
== END 2021-07-02 13:28 | disposition home or self-care (01) ==
PROVIDERS: Emergency Provider Student in an Organized Health Care Education/Training Program; PCP Family Medicine
DX: N83.291 Other ovarian cyst, right side (principal)
CPT/HCPCS: 36415; 80053; 81025; 83690; 99284; 76700; 76830; 76856; 81003; 81015; 85025

== ENCOUNTER 2021-08-06 09:25 | Emergency (ER) | payer SELFPAY ==
[2021-08-06 09:39] VITALS: BP 114/69; PULSE 87; TEMP 37.3; O2SAT 99
--- NOTE | 2021-08-06 09:44 | ED.GENADUL_ITS ---
Discharge Plan Disposition Patient Disposition: HOME Condition: Stable Discharge Details Clinical Impression: Lymphadenopathy Primary Care Provider: Raimundo Wallace ED Provider: Lamin Chan Home Meds and New Rx's Prescriptions: Continued Mirena 20 mcg/24 hours (5 yrs) 52 mg intrauterine device 1 device IY ONCE RF: 0 ibuprofen 200 mg Tablet 600 mg PO Q6H PRNRF: 0 Discharge Instructions Instructions: Lymphadenopathy (ED) Additional Instructions: At this time you have a swollen tender lymph node but no obvious signs of infection. Rapid strep was negative. No clear indication for emergent antibiotics. Please watch your symptoms carefully over the next few days, return for new or worsening symptoms. In the meantime [id number] medications such as Tylenol, Motrin, antihistamines and decongestants for symptomatic control as directed. Cool and/or warm compresses every 2 hours for 20 minutes. Otherwise I recommend reaching out to your primary care provider to discuss reevaluation if your symptoms not improving over the next 3-5 days with conservative therapy. Friday we do today Medical Decision Making 26-year-old female with no significant past medical history, not a smoker, presents with a single swollen right lymph node to her right neck as well as right ear pain that began sometime this morning. She has not taken any medication for her symptoms. She is fully vaccinated. Denies recent illness or sick contacts. No additional concerns or complaints. Clinically she appears well, nontoxic. She does have 1 single tender anterior cervical lymph node without erythema, warmth, fluctuance or induration. Clinically she is afebrile, ear, face, mouth, throat, unremarkable. No clear source of obvious infection. Rapid strep negative, culture pending Patient reports symptoms began this morning. She has swollen tender lymph node otherwise examination is unremarkable. No clear source of bacterial infection that requires antibiotic therapy. Given her symptoms began just a couple of hours ago I do believe that conservative measures, careful watching is reasonable prior to initiating emergent antibiotic therapy. Patient is comfortable with this plan. Standard discharge and return precautions provided. Airway is patent, patient is managing her own secretions, speaking in full sentences. No respiratory compromise. This documentation was generated using [employer] system, please disregard any oddities of phrase or misspellings. Medical Records Medical records reviewed: Yes I reviewed the patient's medical records. Lab Data Lab results reviewed: Yes I reviewed the patient's lab results. Labs: Rapid strep negative HPI General Mode of arrival: ambulatory . Date/Time Provider Initiated Documentation: 08/06/21 09:44 . Limitations to Documentation: no limitations . Information obtained by: patient . HPI Narrative: This is a 26-year-old female, denies significant past medical history, not a smoker, noticing a painful swollen lymph node on the right side of her neck this morning as well as some right ear pain. Patient reports that she is fully vaccinated against Covid. She denies headache, ear drainage, fever, sore throat, difficulty speaking, swallowing, breathing, chest pain, breath, cough, abdominal pain, nausea, vomiting, skin rash, any other lumps or bumps that she has noticed. Patient has not taken any medication for her symptoms. 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 Patient reports that the pain is mild at rest but worse with palpation. Related Data Home Medications Medication Instructions Recorded Confirmed levonorgestrel 20 mcg/24 hours (7 1 device IY ONCE 05/23/20 08/06/21 yrs) 52 mg intrauterine device ibuprofen 600 mg PO Q6H PRN 08/06/21 08/06/21 Allergies Allergy/AdvReac Type Severity Reaction Status Date / Time hydrocodone AdvReac Nausea Verified 08/06/21 09:46 environmental allergies Allergy Mild iching, Uncoded 08/06/21 09:46 rashes General Stated Complaint: DentalOral SATYA: 4 Review of Systems Constitutional Constitutional: Denies fever(s) and Denies headache(s) ENT Ears, Nose, Mouth, and Throat: Denies ear discharge, Reports otalgia, Denies headache(s), Denies nasal congestion, Reports neck mass, Reports neck pain, Denies sore throat and Denies throat swelling Cardiovascular Cardiovascular: Denies chest pain and Denies dyspnea Respiratory Respiratory: Denies cough and Denies dyspnea Gastrointestinal Gastrointestinal: Denies abdominal pain, Denies nausea and Denies vomiting Musculoskeletal Musculoskeletal: Denies arthralgias and Reports neck pain Integumentary/Breasts Skin/Breast: Denies erythema and Denies rash Neurologic Neurologic: Denies headache(s) Allergic/Immunologic Allergic/Immunologic: Denies throat swelling [facility] Medical History 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 Anxiety (07/14/14) Migraine without aura Surgical History Tonsillectomy Family History Mother Heartburn Uterine fibroid Social History Smoking/Tobacco Use Status: Never Smoking risk assessment performed?: Yes Alcohol Intake: never Drug use: Never Substance use type: does not use Household members: family Housing: house Do you feel safe at home: Yes Do you feel safe in your relationship?: Yes Exam Const General: cooperative, healthy appearing, comfortable and no acute distress Orientation: alert, awake and oriented x3 HENMT Head: normal to inspection, normocephalic and atraumatic Ears: external ears normal, TM's normal bilaterally and EAC's normal General nose exam: external nose normal Face and sinus: normal facial exam Mouth: oral mucosae normal and moist mucous membranes Teeth and gingiva: dentition normal Throat: posterior oropharynx normal Eyes General: appearance normal, both eyes and all related structures Conjunctivae: conjunctivae normal Neck Neck: normal visual inspection, full ROM, no meningeal signs, trachea midline, supple and lymphadenopathy right anterior cervical tender 0.59 in Thyroid: thyroid normal Resp Effort & Inspection: normal respiratory effort and able to speak in complete sentences Auscultation: clear to auscultation bilaterally Cardio Rate: regular rate Rhythm: regular rhythm Skin General skin exam: no rashes or lesions noted Neuro General: patient alert, patient awake, moves all extremities and no focal motor deficits Cognition: normal cognition Speech: speech normal Gait: normal gait Sensory Exam: no sensory deficits noted Psych Appearance: grossly normal Mental Status: mental status grossly normal Course Vital Signs Vital signs: Vital Signs Temperature 37.3 C 08/06/21 09:39 Pulse 87 08/06/21 09:39 Blood Pressure 114/69 08/06/21 09:39 Pulse Oximetry 99 08/06/21 09:39 Temperature 37.3 C 08/06/21 09:39 Temperature Source Temporal Artery Scan 08/06/21 09:39 Pulse 87 08/06/21 09:39 Blood Pressure 114/69 08/06/21 09:39 Blood Pressure Position Sitting 08/06/21 09:39 Pulse Oximetry 99 08/06/21 09:39 Oxygen Delivery Method Room Air 08/06/21 09:39 Oxygen Flow Rate 0 08/06/21 09:39 Pain Level 5 08/06/21 09:39
== END 2021-08-06 10:22 | disposition home or self-care (01) ==
PROVIDERS: Emergency Provider Physician Assistant; PCP Family Medicine
DX: R59.0 Localized enlarged lymph nodes (principal); H92.01 Otalgia, right ear
CPT/HCPCS: 87880; 99282; 87081; 99283

== ENCOUNTER 2022-06-29 10:30 | Emergency (ER) | payer OTHER, SELFPAY ==
--- NOTE | 2022-06-29 10:30 | RT.EKG_ITS ---
APPROVED REPORT Exam: Resting ECG Reason for Exam: chest pain Patient Location: E HR:82 bpm ECG Measurements Heart Rate 82 AXIS DE 129 P 51 QRSd 95 QRS -5 QT 385 T 37 QTc 451 Conclusion Sinus rhythm...normal P axis, V-rate 60- 99
[2022-06-29 10:34] VITALS: BP 101/58; PULSE 84; RESP 18; O2SAT 98
--- NOTE | 2022-06-29 10:44 | ED.GENADUL_ITS ---
Discharge Plan Disposition Patient Disposition: HOME Discharge Details Clinical Impression: Gastritis Primary Care Provider: Unknown,Unknown ED Provider: Juan Jose Gallegos Home Meds and New Rx's Prescriptions: New lansoprazole [Prevacid 24Hr] 15 mg capsule,delayed release(DR/EC) 15 mg PO DAILY Qty: 30 0RF No Action Mirena 20 mcg/24 hours (5 yrs) 52 mg intrauterine device 1 device IY ONCE Rx Instructions: as a single dose ibuprofen 200 mg Tablet 600 mg PO Q6H PRN Discharge Instructions Instructions: Gastritis (ED) Additional Instructions: Please continue watching your diet as you do. No caffeine, no tea, no soft drinks. Avoid irritant foods. Please follow-up with your primary care doctor next week as Medical Decision Making 27-year-old presented to the emergency room with epigastric pain for over a month. This is consistent with gastritis nonetheless she was ruled out for pancreatitis as well as any type of gallbladder or liver disease. She felt better after Pepcid in the emergency department. Reports Streaks of blood in her emesis, this is consistent with a small Kasandra-Coffman tear. Patient's nausea essentially resolved while in the emergency department. Normal vital signs. Patient will discharge with a prescription for Prevacid and follow-up with pcp. HPI General Date/Time Provider Initiated Documentation: 06/29/22 10:44 . HPI Narrative: 47-year-old, home with healthy woman, presents to the emergency room for evaluation of epigastric discomfort. She states she has been having pretty much constant epigastric discomfort for the past 3 weeks. No alleviating no aggravating factors. Pain is not better with food or worse with food. Pain is also not relieved with Tylenol or Motrin. This morning she woke up with worsening pain associate with some nausea and vomiting. She states she noticed the blood in the vomitus. Her daughter is pain which resolved at this point. There is no radiation of the pain. No heartburn. No bad taste in her throat or mouth. No sick contacts. No fevers no chills. No abdominal pain per se no chest pain per se no back pain. Related Data Home Medications Medication Instructions Recorded Confirmed levonorgestrel 20 mcg/24 hours (7 1 device intrauterine ONCE 05/23/20 08/06/21 yrs) 52 mg intrauterine device (Mirena) ibuprofen 200 mg tablet 600 mg PO Q6H PRN 08/06/21 08/06/21 lansoprazole 15 mg capsule,delayed 15 mg PO DAILY #30 caps 06/29/22 release (Prevacid 24Hr) Previous Rx's Medication Instructions Recorded lansoprazole 15 mg capsule,delayed 15 mg PO DAILY #30 caps 06/29/22 release (Prevacid 24Hr) Allergies Allergy/AdvReac Type Severity Reaction Status Date / Time hydrocodone AdvReac Nausea Verified 08/06/21 09:46 environmental allergies Allergy Mild iching, Uncoded 08/06/21 09:46 rashes General Stated Complaint: Chest Pain SATYA: 3 Review of Systems Narrative: Constitutional is been negative for fever chills, negative for malaise, negative for fatigue. Eyes: No visual changes, no tearing ENT: No sore throat. Cardiovascular no chest pain, no shortness of breath with exertion, no palpitations, no lightheadedness Respiratory: No shortness of breath, no cough, GI: No abdominal pain, no diarrhea, no nausea, no vomiting, no dark stools, no blood in her stools : No dysuria, no frequency, no hematuria MSK: No myalgias, no arthralgias Skin: No rash Neurological: No headaches, no dizziness Psych: No anxiety, no depression Endo: No weight gain no weight loss Hematology/lymph: no easy bleeding, not on blood thinners PFSH All Active Problems (Updated 06/29/22 @ 12:05 by Juan Jose Gallegos MD) Lymphadenopathy (Acute) Gastritis (Acute) Hemorrhagic cyst of right ovary (Acute) IUD surveillance (Acute) Migraine without aura (Chronic) Anxiety (Chronic 07/14/14) Medical History 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 Anxiety (07/14/14) Migraine without aura Surgical History Tonsillectomy Family History Mother Heartburn Uterine fibroid Social History Smoking/Tobacco Use Status: Never Smoking risk assessment performed?: Yes Alcohol Intake: never Drug use: Never Substance use type: does not use Household members: family Housing: house Do you feel safe at home: Yes Do you feel safe in your relationship?: Yes Exam Narrative Exam Narrative: General: A,A Ox3, Calm, no apparent distress, well developed, pleasant and cooperative Head Size/Shape: normocephalic, atraumatic Eyes Pupils: PERRLA Extraocular Mobility: intact and symmetrical Conjunctiva: non-injected, anicteric, no discharge Ears, Nose, Throat Nares: patent bilaterally Oral Cavity: moist Neck: no masses, no crepitus Lymph Nodes: no cervical lymphadenopathy Respiratory Respiratory Effort: no dyspnea Auscultation: clear to auscultation bilaterally, normal breath sounds, no wheezing, no rales/crackles Cardiovascular Heart Auscultation: regular rate and rhythm, normal S1, normal S2, no murmurs, no rubs, no gallops, Pulse Quality: +2 equal bilaterally, location(s) radial Abdomen Inspection and Palpation: soft, non-tender, non-distended, no hepatosplenomegaly Musculoskeletal System Joints, Bones, and Muscles: no deformities Extremities: warm and well-perfused, no cyanosis, capillary refill <2 seconds Skin Skin Inspection: no rash, no lesions, no bruising Neurological Motor: normal tone, normal strength, moving all extremities equally Psychiatric: good insight, good judgement, normal mood and affect Course Vital Signs Vital signs: Vital Signs Pulse 84 06/29/22 10:34 Respiratory Rate 18 06/29/22 10:34 Blood Pressure 101/58 L 06/29/22 10:34 Pulse Oximetry 98 06/29/22 10:34 Temperature Source Temporal Artery Scan 06/29/22 10:34 Pulse 84 06/29/22 10:34 Respiratory Rate 18 06/29/22 10:34 Blood Pressure 101/58 L 06/29/22 10:34 Blood Pressure Position Sitting 06/29/22 10:34 Pulse Oximetry 98 06/29/22 10:34 Oxygen Delivery Method Room Air 06/29/22 10:34 Oxygen Flow Rate 0 06/29/22 10:34 Pain Level 5 06/29/22 10:34
--- NOTE | 2022-06-29 10:45 | DI.RAD_ITS ---
Exam(s) XR CHEST 2V PA LATERAL EXAM: XR CHEST 2V PA LATERAL CLINICAL HISTORY: pain TECHNIQUE: 2D digital imaging was performed. COMPARISON: No exams were available for comparison FINDINGS: The heart is not enlarged. The lungs are clear and well expanded. No pleural effusion seen. Mediastin al contours appear intact. IMPRESSION: Normal chest. RADIATION DOSE DELIVERED: Total DLP
[2022-06-29 10:54] VITALS: RESP 16
[2022-06-29] MEDS: FAMOTIDINE 20 MG in Normal Saline 100 ML 400 MG IVPB (11:04)
[2022-06-29 11:26] LABS: Abs Immature Grans 0.04 10^3/uL (0.0-0.06); Absolute Basophil Count 0.06 10^3/uL (0.0-0.2); Absolute Eosinophil Count 0.08 10^3/uL (0.0-0.7); Absolute Lymphocyte Count 1.52 10^3/uL (1.2-3.4); Absolute Monocyte Count 0.56 10^3/uL (0.1-0.8); Absolute Neutrophil Count 9.49 10^3/uL (1.2-6.7); Basophils % 0.5; Eosinophils % 0.7; HCT 42.3 % (36.0-46.0); HGB 14.3 g/dL (11.2-15.7); Immature Grans % 0.3; Lymphocytes % 12.9; MCH 29.7 pg (27.0-33.0); MCHC 33.8 % (32.0-36.0); MCV 88 fL (80-95); MPV 8.8 fL (8.0-11.0); Monocytes % 4.8; Neutrophils % 80.8; Platelet Count 322 10^3/uL (130-400); RBC 4.81 10^6/uL (3.93-5.22); RDW 12.2 % (11.7-14.6); RDW-SD 39.5 fL; WBC 11.75 10^3/uL (4.4-10.8)
[2022-06-29 11:40] LABS: ALT 33 U/L (14-59); AST 27 U/L (15-37); Albumin 4.3 g/dL (3.4-5.0); Alkaline Phosphatase 74 U/L (46-116); Anion Gap 12.1 mmol/L (3-11); BUN 17 mg/dL (7-18); Bilirubin, Total 0.8 mg/dL (0.2-1.0); CO2 22.9 mmol/L (21.0-32.0); CREATININE 0.8 mg/dL (0.55-1.02); Calcium 8.8 mg/dL (8.5-10.1); Chloride 100 mmol/L (98-107); Estimated GFR 104.15 (mL/min/1.73m2); Glucose 68 mg/dL (74-106); Lipase 46 U/L (73-393); Potassium 4.1 mmol/L (3.5-5.1); Sodium 135 mmol/L (136-145); Total Protein 7.6 g/dL (6.4-8.2)
--- NOTE | 2022-06-29 12:01 | DI.VRAD_ITS ---
PROCEDURE INFORMATION: Exam: XR Chest Exam date and time: 06/29/2022 11:30 AM Age: 27 years old Clinical indication: Other: Chest/rib pain TECHNIQUE: Imaging protocol: Radiologic exam of the chest. Views: 2 views. COMPARISON: CT Abdomen^ROUTINE ABDOMEN PELVIS WITH CONTRAST (Adult) 11/09/2018 12:20 PM FINDINGS: Lungs: No focal consolidation. Pleural spaces: No pneumothorax or pleural effusion. Heart/Mediastinum: Normal cardiomediastinal silhouette. Bones/joints: No acute abnormality. IMPRESSION: No acute findings. Dictated and Authenticated by: Blayne Cramer MD. Ordering:MEREDITH Ingram MD
[2022-06-29 12:36] VITALS: BP 102/57; PULSE 76; RESP 14; TEMP 36.8; O2SAT 98
== END 2022-06-29 12:43 | disposition home or self-care (01) ==
PROVIDERS: Emergency Provider Emergency Medicine
DX: K29.70 Gastritis, unspecified, without bleeding (principal); R07.9 Chest pain, unspecified
CPT/HCPCS: 80053; 83690; 93005; 96374; 99284; 71046; 85025; 93010

== ENCOUNTER 2022-09-02 13:36 | Outpatient (REF) | payer OTHER, SELFPAY ==
--- OUTSIDE RECORDS SUMMARY | 2022-09-02 13:38 | XMS_ITS | Encounter Summary ---
:1995 Author Organization [facility] Address [address] [place] [address] Care Team Providers Name Role Phone Unknown, Provider Primary Care Provider [facility] Internal Medicine, Alex Primary Care Provider Encounter Details Date Type Department Care Team Description 12/11/2020 Lab Requisition [facility] Fidelina Garcia E ncounter for other Pathology & PLASTIC TILE SETTER general examination Laboratory Medicine [address] [place], [place] [address] [facility] [id number] [place] [address] Social History Tobacco Use Types Packs/Day Years Used Date Smoking Tobacco: Never Assessed Sex Assigned at Date Recorded Not on file documented as of this encounter Plan of Treatment Not on filedocumented as of this encounter Procedures Procedure Name Priority Date/Time Associated Diagnosis Comme nts PAP TEST Today 12/08/2020 15:00 EST Encounter for other Results for this general examination procedur e are in the results section. documented in this encounter Results PAP TEST (12/08/2020 15:00 EST) Component Value Ref Test Analysis Performed At [facility] Range Method Time Signature Specimens A. Cervix and/or 12/15/2020 [facility] MEDICAL Endocervix , 14:45 EST CENTER ThinPrep Imaging LABORATORY System with SERVICES Manual Evaluation Specimen Satisfactory for 12/15/2020 [facility] MEDICAL Adequacy Evaluation - 14:45 EST CENTER transformation LABORATORY zone component SERVICES present General Negative for 12/15/2020 [facility] MEDICAL Categorization intraepithelial 14:45 EST CENTER lesion or LABORATORY malignancy SERVICES Attestation . 12/15/2020 [facility] MEDICAL Elect ronically 14:45 EST CENTER signed by LABORATORY Schuyler, TAHIR Fulton(ASCP) o n 12/15/2020 at 1445 Clinical History See below 12/15/2020 [facility] MEDICAL 14:45 [facility] LABORATORY SERVICES Performing Lab [facility] 12/15/2020 [facility] MEDIC AL LAB 14:45 [facility] LABORATORY SERVICES Scanned Images 12/15/2020 [facility] MEDICAL 14:45 [facility] LABORATORY SERVICES Specimen Anatomical Collection Method Collection Time Receive d Time (Source) Location / / Volume Laterality Pap Test (Cervix 12/08/2020 15:00 021 and/or EST 11:13 EST Endocervix) Fidelina Garcia PLASTIC TILE SETTER PATHOLOGY ORDERABLES Performing Organization Address City/State/ZIP Code Phon e Number [facility] [address] [place] [address] SERVICES documented in this encounter Visit Diagnoses Diagnosis Encounter for other general examination documented in this encounter Care Teams 2Nd Grade Teacher Relationship Specialty Start Date End Date Unknown, MD [place] PCP - General 01/23/16 01/28/22 [facility] Internal Medicine, Alex PCP - General 01/29/[address] [place] [address] documented as of this encounter
--- OUTSIDE RECORDS SUMMARY | 2022-09-02 13:38 | XMS_ITS | Encounter Summary ---
:1995 Author Organization [facility] Address [address] [place] [address] Care Team Providers Name Role Phone [facility] Internal Medicine, Primary Care Provider Encounter Details Date Type Department Care Team Description 04/23/2022 Orders Only [facility] - Helio Cline Otivet er chest pain [facility] - Luz TWISTING OPERATOR (Primary Dx) [place] [address] [place] [address] [address] [place] [address] Social History Tobacco Use Types Packs/Day Years Used Date Smoking Tobacco: Never Assessed Sex Assigned at Date Recorded Not on file documented as of this encounter Plan of Treatment Not on filedocumented as of this encounter Procedures Procedure Name Priority Date/Time Associated Diagnosis Comme nts ECG REPORT - 04/23/2022 22:41 SCANNED EDT EKG 12-LEAD Routine 04/22/2022 11:58 Other chest pain Results for this EDT procedure are i n the results section. documented in this encounter Results ECG REPORT - SCANNED (04/23/2022 22:41 EDT) Specimen (Source) Anatomical Collection Method Collection Time Re ceived Time Location / / Volume Laterality 04/23/2022 22:41 EDT Narrative This result has an attachment that is no t available. Scan [address] Hand PROCEDURE/MINOR SURGICAL ORD ERABLES EKG 12-LEAD (04/22/2022 11:58 EDT) Specimen (Source) Anatomical Collection Method Collection Time Re ceived Time Location / / Volume Laterality 04/22/2022 11:58 EDT Narrative [facility] - 22:38 EDT ? [facility] ? Test Date: ?2022-04-22 Pat Name: ? EDMAR LAN ? Department: ? Room: ? Gender: ? Female ? Plumber: ?? PF : ?1995 ? Requested By: BRUNA Escobar Order Number: [id number] ? Reading MD: ?? CAROLYNE JOSUE MD ? Measurements Intervals ?[place] ? Rate: ? 83 ? P: ?43 OK: ? 142 ?QRS: ?16 QRSD: ? 88 ? T: ?35 QT: ? 366 ? QTc: ?430 ? Interpretive Statements Normal sinus rhythm No previous ECG available for comparison I reviewed the tracing and have either a greed or edited the findings in this report. Electronically Signed On 04-23-20 22:38:59 EDT by CAROLYNE JOSUE MD. Procedure Note Carolyne Josue MD - 04/23/2022F ormatting of this note might be different from the original. [facility] Test Date: 2022-04-22 Pat Name: EDMAR LAN Department: Room: Gender: Female Plumber: : 1995 Requested By: BRUNA Escobar Order Number: [id number] Reading MD: Rebecca JOSUE MD Measurements Intervals [place] Rate: 83 P: 43 OK: 142 QRS: 16 QRSD: 88 T: 35 QT: 366 QTc: 430 Interpretive Statements Normal sinus rhythm No previous ECG available for comparison I reviewed the tracing and have either a greed or edited the findings in this report. Electronically Signed On 04-23-20 22:38:59 EDT by CAROLYNE JOSUE MD. Helio Cline NP CARDIAC ECG ORDERABLES Performing Organization Address City/State/ZIP Code Phon e Number [facility] documented in this encounter Visit Diagnoses Diagnosis Other chest pain - Primary documented in this encounter Care Teams Title Insurance Agent Relationship Specialty Start Date End Date [facility] Internal Medicine, Alex PCP - General 01/29/[address] [place] [address] documented as of this encounter
--- OUTSIDE RECORDS SUMMARY | 2022-09-02 13:38 | XMS_ITS | Encounter Summary ---
:1995 Author Organization [facility] Address [address] [place] [address] Care Team Providers Name Role Phone [facility] Internal Medicine, Primary Care Provider [phone] Reason for Visit Reason Comments Nasal Congestion Cough Encounter Details Date Type Department Care Team Description 01/29/2022 [place] [facility] [place] [facility] Siri Nelson per respiratory Clinic Jose Francisco Mueller MD tract infection, [address] [facility] [address] uns ecified type [address] (Primary Dx) [place] [address] [place], [place] [phone] Social History Tobacco Use Types Packs/Day Years Used Date Smoking Tobacco: Never Assessed Sex Assigned at Date Recorded Not on file documented as of this encounter Last Filed Vital Signs Vital Sign Reading Time Taken Comments Blood Pressure 100/68 01/29/2022 0913 EDT Pulse 88 01/29/2022 0913 EDT Temperature 36.9 ??C (98.5 ??F) 01/29/2022 0913 EDT Respiratory Rate 20 01/29/2022 0913 EDT Oxygen Saturation 98% 01/29/2022 0913 EDT Inhaled Oxygen Concentration - - Weight - - Height - - Body Mass Index - - documented in this encounter Ordered Prescriptions Prescription Sig Dispensed Refills Start Date End Date amoxicillin-clavulanate Take 1 Tablet by 14 Tablet 0 202102/05/2022 (AUGMENTIN) 875-125 mg per mouth 2 times daily tabletIndications: Upper for 7 days. respiratory tract infection, unspecified type documented in this encounter Progress Notes Flaquita Walter RN - 01/29/2022 0900 EDT CC/HPI: week long of illness - stuffy nose, chest discomfort & coughing. Fever of 100.4 last night. Reports has tried multiple otc meds without relief - nothing today. Has done multiple home covid testing - was negative Covid Screening: In the last 72 hours, has the patient had: New or unusual cough, shortness of breath, new nasal congestion, sore throat, fever, chills, body aches, or new loss of taste or smell without a reasonable alternative diagnosis*? (If yes, assign to ARC) cough, occasional sob with taking deep breaths, congestion, fever, throat pain in am, loss of smell In the past 10 days, has the patient had a positive Covid test OR a confirmed close Covid exposure (<6ft for > 15mins in 24hr period)? (if yes, assign to ARC, regardless of vaccination status) no Is the patient fully Covid vaccinated? yes Approximate date of last dose? Booster 2wks ago *may be determined by RN or in discussion with available provider (CALL OR CONTACT CENTRE OPERATOR's and CCA's can defer to Charge Nurse to complete triage when appropriate) PCP: [facility] Internal Medicine Jose Francisco Nelson MD - 01/29/2022 0900 EDT [facility] Chief Complaint(s): Nasal Congestion and Cough HPI: HPI Patient comes in noting waxing and waning upper respiratory illness or the past month or so with cough and nasal symptoms. Just Covid boosted 2 weeks ago. This past week sinus symptoms have worsened a bit, hard to sleep due to congestion, postnasal drip making her cough, and temp last night of 100.3. Cough otherwise dry. Has taken some negative home Covid tests. 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 I have reviewed current problem list and current medications. Current Outpatient Medications Medication Sig Dispense Refill ??? amoxicillin-clavulanate (AUGMENTIN) 875-125 mg per tablet Take 1 Tablet by mouth 2 times daily for 7 days. 14 Tablet 0 No current facility-administered medications for this visit. ROS: Review of Systems Respiratory: Positive for cough. Objective: Examination: Vitals: BP 100/68 Pulse 88 Temp 36.9 ??C (98.5 ??F) (Oral) Resp 20 SpO2 98% There is no height or weight on file to calculate BMI. A pain level of 6 was reported at today's visit for location: (chest & facial pain). Physical Exam Vitals and nursing note reviewed. Constitutional: General: She is not in acute distress. Appearance: She is well-developed. HENT: Head: Normocephalic and atraumatic. Right Ear: Tympanic membrane and ear canal normal. Left Ear: Tympanic membrane and ear canal normal. Cardiovascular: Rate and Rhythm: Normal rate and regular rhythm. Heart sounds: Normal heart sounds. Pulmonary: Effort: Pulmonary effort is normal. No respiratory distress. Breath sounds: Normal breath sounds. Musculoskeletal: Cervical back: Neck supple. Lymphadenopathy: Cervical: No cervical adenopathy. Skin: General: Skin is warm and dry. Neurological: Mental Status: She is alert and oriented to person, place, and time. Psychiatric: Mood and Affect: Mood normal. Behavior: Behavior normal. No results found for this or any previous visit (from the past 24 hour(s)). Assessment & Plan: Tamara was seen today for nasal congestion and cough. Diagnoses and all orders for this visit: Upper respiratory tract infection, unspecified type - amoxicillin-clavulanate (AUGMENTIN) 875-125 mg per tablet; Take 1 Tablet by mouth 2 times daily for 7 days. - COVID-19 TESTING Benign exam, reassuring vitals, low suspicion for pneumonia at this time. Covid PCR test performed.A bit difficult to say whether this has been one prolonged illness or potentially multiple differentones, but for all intents and purposes should Covid come back positive, would consider yesterday to be day 0 given new temp. In meantime will cover for possible secondary bacterial sinusitis given history with Augmentin, and she will be seen for persistent or worsening symptoms. New Prescriptions AMOXICILLIN-CLAVULANATE (AUGMENTIN) 875-125 MG PER TABLET Take 1 Tablet by mouth 2 times daily for 7 days. Jose Francisco Nelson MD documented in this encounter Miscellaneous Notes Result Encounter Note - Jose Francisco Nelson MD - 01/29/2022 0900 EDT Please let her know covid test neg documented in this encounter Plan of Treatment Not on filedocumented as of this encounter Procedures Procedure Name Priority Date/Time Associated Diagnosis Comme nts COVID-19 TEST [facility] Today 01/29/2022 9:59 EDT Upper respirat ory Results for this LAB PCR tract infection, procedure a re in unspecified type the results section. COVID-19 TESTING Routine 01/29/2022 9:59 EDT Upper respiratory Results for this tract infection, procedure a re in unspecified type the results section. documented in this encounter Results COVID-19 TEST [facility] LAB PCR (01/29/2022 9:59 EDT) Specimen Anatomical Collection Method Collection Time Receive d Time (Source) Location / / Volume Laterality Swab (Anterior Swab / Unknown 01/29/2022 9:59 01/30/20 9:59 nares) EDT EDT Jose Francisco Nelson MD MICROBIOLOGY - GENERAL ORDERABLES Performing Organization Address City/State/ZIP Code Phon e Number [facility] [address] [place] [id number] SERVICES COVID-19 TESTING (01/29/2022 9:59 EDT) Analysis Performed At Patho logist Time Signature COVID-19 Negative Negative 01/30/2022 [facility] rt-PCR Result 15:52 EDT [facility] Comment: This test has not been FDA cleared or ap proved. This test has been authorized by FDA under an EUA for use by authorized laboratories. This test has been authorized only for detection of nucleic acid fro m 2019-nCoV, not for any other viruses o r pathogens. This test is only authorized for the duration of the declaration that circumstances exist justifying the authorization of emergency use of in vitro d iagnostic tests for detection and/or kalpesh gnosis of 2019-nCoV under section 564(b)(1) of Act, 21 U.S.C ?? 360bbb-3(b) (1), unless the authorization is terminated or revoked sooner. Negative results do not preclude 2019-[place] oV infection and should not be used as the sole basis for treatment or other patient management decisions. Negative results must be combined with clinical observa tions, patient history, and epidemiologi marleny information. Testing was performed using the riccardo SA RS-CoV-2 assay ([employer] on the Riccardo 6800 System Performing Lab [facility] [address] [facility] 01/30/2022 15:52 E DT [facility] LABORAT[facility] SERVICES Specimen Anatomical Collection Method Collection Time Receive d Time (Source) Location / / Volume Laterality Swab (Anterior Swab / Unknown 01/29/2022 9:59 01/30/20 9:59 nares) EDT EDT Jose Francisco Nelson MD MICROBIOLOGY - GENERAL ORDERABLES Performing Organization Address City/State/ZIP Code Phon e Number [facility] [address] [place] [address] SERVICES documented in this encounter Visit Diagnoses Diagnosis Upper respiratory tract infection, unspe cified type - Primary documented in this encounter Care Teams Casting Machine Operator Automatic Relationship Specialty Start Date End Date [facility] Internal Medicine, Mp PCP - General 01/29/[address] [place], [place] [id number] documented as of this encounter
--- OUTSIDE RECORDS SUMMARY | 2022-09-02 13:38 | XMS_ITS | Clinical Summary ---
:1995 Author Organization [facility] Address [address] [place] [address] Care Team Providers Name Role Phone [facility] Internal Medicine, Primary Care Provider Allergies Active Allergy Reactions Severity Noted Date Comments Hydrocodone Hives 08/06/2021 Other - See Comments Other (See Comments) 08/06/2021 Environmental allergies Medications No known medications Social History Tobacco Use Types Packs/Day Years Used Date Smoking Tobacco: Never Assessed Sex Assigned at Date Recorded Not on file Last Filed Vital Signs Vital Sign Reading Time Taken Comments Blood Pressure 100/60 04/22/2022 1251 EDT Pulse 85 04/22/2022 1251 EDT Temperature 36.8 ??C (98.2 ??F) 04/22/2022 1251 EDT Respiratory Rate 20 04/22/2022 1251 EDT Oxygen Saturation 99% 04/22/2022 1251 EDT Inhaled Oxygen Concentration - - Weight - - Height - - Body Mass Index - - Plan of Treatment Health Maintenance Due Date Last Done Comments Hepatitis C Screen 1996 COVID-19 Vaccine (#1) 1996 Insurance Payer Benefit Plan / Subscriber ID Effective Dates Phone Addre ss Type Group [facility] [id number] 2021-Present [phone] [place] [phone] Tamara Winter Personal/Family Self [address]Home) [place] [phone] [place] [phone] Tamara Winter Personal/Family Self [address]Home) [place] [phone] [place] [phone] Tamara Winter Personal/Family Self [address]Home) [place] [phone] [place]) [phone] Tamara Winter Personal/Family Self [address] (Home) [place] [phone] [place] [phone] Tamara Winter Personal/Family Self [address] (Home) [place] [phone] [place] [phone] Tamara Winter Personal/Family Self [address] [place] [phone] [place] [phone] Tamara Winter Personal/Family Self [address]Home) [place] [phone] [place] [id number] Care Teams Emergency Department Physician Relationship Specialty Start Date End Date [facility] Internal Medicine, Mp PCP - General 01/29/[address] [place], [place] [id number]
--- OUTSIDE RECORDS SUMMARY | 2022-09-02 13:38 | XMS_ITS | Encounter Summary ---
:1995 Author Organization [facility] Address [address] [place] [address] Care Team Providers Name Role Phone [facility] Internal Medicine, Primary Care Provider [phone] Reason for Visit Reason Comments Chest Pain Encounter Details Date Type Department Care Team Description 04/22/2022 Walk-In [facility] John Morris, Other chest pain [facility] Leo LIM (Primary Dx) [address] [place] [address] [facility] [phone] [place] [address] Social History Tobacco Use Types Packs/Day Years [...] Index - - documented in this encounter Patient Instructions Patient InstructionsJohn Morris PA-C - 04/22/2022 13:00 EDT Images from the original note were not included. [facility] Patient Instructions Costochondritis: Care Instructions Your Care Instructions You have chest pain because the cartilage of your rib cage is inflamed. This problem is called costochondritis. This type of chest wall pain may last from days to weeks. It is not a heart problem. Sometimes costochondritis occurs with a cold or the flu, and other times the exact cause is not known. Follow-up care is a marin part of your treatment and safety. Be sure to make and go to all appointments, and call your doctor if you are having problems. It's also a good idea to know your test results and keep a list of the medicines you take. How can you care for yourself at home? ?? Take medicines for pain and inflammation exactly as directed. ? If the doctor gave you a prescription medicine, take it as prescribed. ? If you are not taking a prescription pain medicine, ask your doctor if you can take an [id number] medicine. ? Do not take two or more pain medicines at the same time unless the doctor told you to. Many pain medicines have acetaminophen, which is Tylenol. Too much acetaminophen (Tylenol) can be harmful. ?? It may help to use a warm compress or heating pad (set on low) on your chest. You can also try alternating heat and ice. Put ice or a cold pack on the area for 10 to 20 minutes at a time. Put a thincloth between the ice and your skin. ?? Avoid any activity that strains the chest area. As your pain gets better, you can slowly return to your normal activities. ?? Do not use tape, an elastic bandage, a rib belt, or anything else that restricts your chest wall motion. When should you call for help? Call 911 anytime you think you may need emergency care. For example, call if: ? You have new or different chest pain or pressure. This may occur with: ? Sweating. ? Shortness of breath. ? Nausea or vomiting. ? Pain that spreads from the chest to the neck, jaw, or one or both shoulders or arms. ? Dizziness or lightheadedness. ? A fast or uneven pulse. After calling 911, chew 1 adult-strength aspirin. Wait for an ambulance. Do not try to drive yourself. ? You have severe trouble breathing. Call your doctor now or seek immediate medical care if: ? You have a fever or cough. ? You have any trouble breathing. ? Your chest pain gets worse. Watch closely for changes in your health, and be sure to contact your doctor if: ? Your chest pain continues even though you are taking anti-inflammatory medicine. ? Your chest wall pain has not improved after 5 to 7 days. Where can you learn more? Go to [email or web address] or log into your [employer]vi account at [email or web address] Enter K868 in the search box to learn more about Costochondritis: Care Instructions. Current as of: April 05, 2021?Content Version: 13.2 ?? [employer]. Care instructions adapted under license by [facility]. If you have questions about a medical condition or this instruction, always ask your healthcare professional. [employer] disclaims any warranty or liability for your use of this information. documented in this encounter Progress Notes Zamzam Fatima RN - 04/22/2022 1300 EDT CC/HPI: L sided CP up under R cage with breathing that began approx 1/2 hour ago. Denies LUE, jaw, back and neck pain. Damien any Covid sx. Covid Screening: In the last 72 hours, has the patient had: New or unusual cough, shortness of breath, new nasal congestion, sore throat, fever, chills, body aches, or new loss of taste or smell without a reasonable alternative diagnosis*? (If yes, assign to ARC)- NO In the past 10 days, has the patient had a positive Covid test OR a confirmed close Covid exposure (<6ft for > 15mins in 24hr period)? (if yes, assign to ARC, regardless of vaccination status)- NO *may be determined by RN or in discussion with available provider (RING ATTACHER's and CCA's can defer to Charge Nurse to complete triage when appropriate) PCP: [facility] Internal Medicine John Morris PA-C - 04/22/2022 1300 EDT [facility] Chief Complaint(s): Chief Complaint Patient presents with ??? Chest Pain Assessment & Plan: 1. Other chest pain XR RIBS LEFT WITH PA CHEST Positional and pressure sensitive anterior chest pain. Well score 0, PERC negative. ECG is unremarkable. Chest x-ray obtained, no abnormality seen. Suspect lower rib pain syndrome/costochondritis with localized muscle spasm. Discussed acute management to include OTC analgesics, topical treatments if he lpful, and avoiding provocative movements. If problematic may consider referral to pain clinic through her PCPs office for possible interventional approaches. New Prescriptions No medications on file HPI: Patient describes onset of right-sided posterior rib pain a few hours prior to presentation at clinic. Onset was sudden. Pain sharp and well localized. Describes sensation as something pulling up on her ribs from the inside. Has noted a locus deformity in the area of pain. Area is painful to touch. Sitting upright seems to exacerbate symptoms. Symptoms are relieved with trunk flexion to her right side. She has taken some acetaminophen with minimal improvement in symptoms. She has had similar symptoms before that resolved spontaneously. Symptoms have not previously been this painful. She describes history of lower ribs on left side grinding together and apparent deformity in this area. Area on ribsdoes hurt with deep breathing though not specifically exacerbated with deep breathing. No pain elsewhere in chest or back. No pain in left arm, neck or jaw. No swelling or erythema in lower extremities. No history of recent immobilization to include prolonged travel. No recent surgery or history of mal ignancy. No OCP use. No cough or shortness of breath. No myalgia, joint pain or swelling. Denies history of excessive photosensitivity or recent skin changes. ROS: Review of Systems Respiratory: Negative for cough, shortness of breath and wheezing. Cardiovascular: Negative for chest pain (Except as described above) and leg swelling. Gastrointestinal: Negative for abdominal pain, nausea and vomiting. Musculoskeletal: Negative for back pain, falls, joint pain and myalgias. Objective: Vitals and nursing notes reviewed Examination: BP 100/60 (BP Cuff Location: Right arm, BP Patient Position: Sitting, BP Cuff Sizes: Adult, regular) Pulse 85 Temp 36.8 ??C (98.2 ??F) (Skin) Resp 20 SpO2 99% Physical Exam Constitutional: General: She is not in acute distress. Appearance: Normal appearance. She is not ill-appearing. Cardiovascular: Rate and Rhythm: Normal rate and regular rhythm. Pulmonary: Effort: Pulmonary effort is normal. Breath sounds: Normal breath sounds. No wheezing or rhonchi. Musculoskeletal: Comments: Left-sided anterior ribs, generally 9/10 very prominent relative to right. Normal chest excursion with deep breathing. No apparent discomfort with deep inspirations. No overlying skin changes. Prominent area on left rib cage was very tender to light touch. Area over ribs firm to touch as with a trigger point. Minor discomfort along ribs moving towards spine. Skin: General: Skin is warm and dry. Neurological: General: No focal deficit present. Mental Status: She is alert. Sensory: No sensory deficit. XR RIBS LEFT WITH PA CHEST Narrative: INDICATION: Acute on chronic L anterior rib pain TECHNIQUE: 3 views left ribs with PA chest COMPARISON: None. FINDINGS: The cardiomediastinal silhouette and pulmonary vessels are within normal limits. The lungsare clear. No rib fracture is detected. No pneumothorax or effusion is seen. Impression: 1. Lungs clear. 2. No rib abnormality detected. ECG: Rate 88 Reg rhythm, no axis deviation, p waves present, HI 142, QRS <100, QT 366, no ST segment changes, normal voltage criteria. Normal ECG. Data reviewed with patient (current and past results): Problem list, medications, allergies, radiographs reviewed This note may be in part documented using voice dictation software. Please forgive any errors or omissions that may result from use of dictation. Zamzam Fatima RN - 04/22/2022 1300 EDT Veneer Repairer Machine performed EKG as per provider order. Pt tolerated well with no issues. ZAMZAM FATIMA RN. 04/22/22 16:28 documented in this encounter Plan of Treatment Not on filedocumented as of this encounter Procedures Procedure Name Priority Date/Time Associated Diagnosis Comme nts XR RIBS LEFT WITH STAT 04/22/2022 14:11 Other chest pain Re sults for this PA CHEST EDT procedure are i n the results section. documented in this encounter Results XR RIBS LEFT WITH PA CHEST (04/22/2022 14:11 EDT) Anatomical Region Laterality Modality Left Computed Radiography Specimen (Source) Anatomical Collection Method Collection Time Re ceived Time Location / / Volume Laterality 04/22/2022 14:14 EDT Impressions 04/22/2022 14:14 EDT 1. Lungs clear. 2. No rib abnormality detected. Narrative 04/22/2022 14:14 EDT INDICATION: Acute on chronic L anterior rib pain TECHNIQUE: 3 views left ribs with PA zonia st COMPARISON: None. FINDINGS: ??The cardiomediastinal silhou ette and pulmonary vessels are within normal limits. ??The lungs are clear. ??No rib fracture is detected. No pneumothorax or effusion is seen. Procedure Note Eleazar Rodríguez MD - 04/22/2022Formattin g of this note might be different from the original. INDICATION: Acute on chronic L anterior rib pain TECHNIQUE: 3 views left ribs with PA zonia st COMPARISON: None. FINDINGS: The cardiomediastinal silhouet te and pulmonary vessels are within normal limits. The lungs are clear. No rib fracture is detected. No pneumothorax or effusion is seen. IMPRESSION 1. Lungs clear. 2. No rib abnormality detected. John Morris PA-C [facility] ORDER BAILEY documented in this encounter Visit Diagnoses Diagnosis Other chest pain - Primary documented in this encounter Care Teams Resource Efficiency Manager Relationship Specialty Start Date End Date [facility] Internal Medicine, Mp PCP - General 01/29/[address] [place] [address] documented as of this encounter
--- OUTSIDE RECORDS SUMMARY | 2022-09-02 13:39 | XMS_ITS | Encounter Summary ---
:1995 [place] [address] Care Team Providers Name Role Phone None Primary Care Provider Unavailable Encounter Details Date Type Department Care Team Description 06/08/2018 Orders Only Otolaryngology [facility] Dental infection [facility] MD [facility] [place] [address] OTOLARYNGOLGY DEPT [phone] [place], [place] [address] (Wo rk) Social History Tobacco Use Types Packs/Day Years Used Date Smoking Tobacco: Never Assessed Sex Assigned at Date Recorded Not on file documented as of this encounter Plan of Treatment Not on filedocumented as of this encounter Visit Diagnoses Diagnosis Dental infection Acute apical periodontitis of pulpal jovani gin documented in this encounter Care Teams Retail Sales Merchandiser Relationship Specialty Start Date End Date None PCP - General 06/08/18 None documented as of this encounter
--- OUTSIDE RECORDS SUMMARY | 2022-09-02 13:39 | XMS_ITS | Clinical Summary ---
:1995 Author Organization [facility] [place] [address] Care Team Providers Name Role Phone None Primary Care Provider Unavailable Allergies Active Allergy Reactions Severity Noted Date Comments Oxycodone Hives 06/08/2018 Medications Medication Sig Dispensed Refills Start Date End Date Status ibuprofen Take 200 mg by 0 03/28/2011 Acti ve (ADVIL;MOTRIN) 200 mg mouth as needed. tablet amoxicillin-clavulanat Take 1 tablet by 10 tablet 0 06/08/2018 Active e (AUGMENTIN) 875-125 mouth 2 times mg Tablet daily. Additional Information Patient not taking. Reported on 06/29/2018 Active Problems No known active problems Social History Tobacco Use Types Packs/Day Years Used Date Smoking Tobacco: Never Smokeless Tobacco: Never Sex Assigned at Date Recorded Not on file Last Filed Vital Signs Vital Sign Reading Time Taken Comments Blood Pressure 112/72 06/08/2018 4:31 AM EDT Pulse 79 06/08/2018 4:31 AM EDT Temperature 37.1 ??C (98.8 ??F) 06/08/2018 4:31 AM EDT Respiratory Rate 16 06/08/2018 4:31 AM EDT Oxygen Saturation 98% 06/08/2018 4:31 AM EDT Inhaled Oxygen Concentration - - Weight 54.4 kg (120 lb) 06/29/2018 12:45 PM EDT Height 160 cm (5' 3) 06/29/2018 12:45 PM EDT Body Mass Index 21.26 06/29/2018 12:45 PM EDT Plan of Treatment Health Maintenance Due Date Last Done Comments Hepatitis B vaccine (0-59 yrs) (1 of 3 - 3-dose series) 06/09/19 96 Covid-19 Vaccine (#1) 1996 HPV vaccine (1 - 2-dose series) 2007 HIV screen 2014 Hepatitis C Screening 2014 Tdap adult 2015 Tetanus vaccine 2015 PAP Smear 2017 Influenza (Flu) vaccine (1 of - Influenza standard 06/06/2022 series) Insurance Payer Benefit Plan / Subscriber ID Effective Dates Phone Addre ss Type Group [place] [id number] 2018-Carolynn [phone] [address] [facility] [phone] Care Teams Grocery Checker Relationship Specialty Start Date End Date None PCP - General 06/08/18 None
--- OUTSIDE RECORDS SUMMARY | 2022-09-02 13:39 | XMS_ITS | Encounter Summary ---
:1995 Author Organization [facility] Address [address] [place] [address] Care Team Providers Name Role Phone Unavailable Primary Care Provider Unavailable Encounter Details Date Type Department Care Team Description 01/22/2016 Hospital Encounter [facility]- Meghann Unknown, Provider, [facility] [address] [facility] [phone] [place] [address] (Work) [phone] Social History Tobacco Use Types Packs/Day Years Used Date Smoking Tobacco: Never Assessed Sex Assigned at Date Recorded Not on file documented as of this encounter Discharge Disposition Disposition Code Departure Means Destination Home or Self Skilled Nursing documented in this encounter Plan of Treatment Not on filedocumented as of this encounter Visit Diagnoses Not on filedocumented in this encounter
--- OUTSIDE RECORDS SUMMARY | 2022-09-02 13:39 | XMS_ITS | Encounter Summary ---
:1995 [place] [address] Care Team Providers Name Role Phone None Primary Care Provider Unavailable Reason for Visit Reason Comments Oral Swelling Oral Pain 04/14 Encounter Details Date Type Department Care Team Description 06/08/2018 Emergency Emergency Department Luz Izquierdo MD [facility] [address] [place] [address] Mass of hard [facility] [address] [place] [id number] [place] [address] Social History Tobacco Use Types Packs/Day Years [...] - - Weight 54.4 kg (120 lb) 06/08/2018 4:31 AM EDT Height 162.6 cm (5' 4) 06/08/2018 4:31 AM EDT Body Mass Index 20.6 06/08/2018 4:31 AM EDT documented in this encounter Discharge Instructions Discharge Pamela Dey MD - 06/08/2018 10:55 AM EDT You have an abscess, or infection in the roof of your mouth. A referral was placed for an oral surgeon to evaluate your oral mass in clinic. Take augmentin (antibiotic) twice daily for 5 days. Rinse your mouse with saline several times daily. Please alternate taking tylenol 1000mg or ibuprofen 600mg (with food) by mouth every 4-6 hours for pain relief. Limit tylenol to 4000mg daily. Return to the ER if you develop significant swelling, pain, or fever greater than 100.3F. documented in this encounter Medications at Time of Discharge Medication Sig Dispensed Refills Start Date End Date amoxicillin-clavulanate Take 1 tablet by 10 tablet 0 2017 (AUGMENTIN) 875-125 mg mouth 2 times daily. Tablet ibuprofen (ADVIL;MOTRIN) Take 200 mg by mouth 0 0 03/28/2011 200 mg tablet as needed. documented as of this encounter ED Notes Shu Canada RN - 06/08/2018 9:56 AM EDT ent bedside speaking with patient Shu Canada RN - 06/08/2018 8:27 AM EDT Pending ENT recommendations Jerrod Izquierdo MD - 06/08/2018 4:58 AM EDT Brief Attending Note I cared for the patient with the resident physician. Please see Dr. Rdz's note, associated with the encounter, for more details. HPI: Tamara Winter is a 22 y.o. who presents to the ED with painful swelling on her hard palate. She states it started somewhat abruptly 4 days ago. She tends to clench her teeth when she sleeps and wokeup with some soreness and felt it was due to that. Then she felt a palpable swelling. She was seen Bernard night at the emergency department in [facility] and they diagnosed it as something that starts with the letter L, and means of tumor. Since that time it has continued to grow in size, approximately tripling in the last couple of days. ROS: Pertinent positives and negatives are included in the history of present illness, otherwise 10 systems are reviewed and negative Gen: well appearing, NAD HENT: atraumatic, CT scan docs for photo approximately 1.5 cm diameter dome- shaped pink lesion to the right of midline on the hard palate which is mildly tender without obvious discharge. Pulm: no respiratory distress Skin: warm and dry Neuro: speech fluent, no obvious deficit MS: No obvious deformity Psych: Normal mood Assessment: 22-year-old female with rapidly growing oral lesion- possible mucocele versus infection versus other. We will discuss with ear nose throat regarding further diagnosis and management recommendations. No airway concerns at present. Jerrod Izquierdo MD 06/08/18 0503 Odell Rdz MD - 06/08/2018 4:37 AM EDT ED Resident Note I saw this patient 06/08/2018 at 4:37 AM HPI Tamara Winter is a 22 y.o. female who presents to the Emergency Department with four days of painful mass on the roof of her mouth. Ms. Winter states that 4 days ago she awoke with a painful swelling on the roof of her mouth. She states that since then she has been seen at a hospital in [place] but that they were not very helpful for her. She states that the swelling has grown and become more painful over the last 4 days. She denies fevers, chills, or pain on biting. SHe notes that she clenches her teeth when she sleeps. She took advil at 0430. Allergies Allergen Reactions ??? Oxycodone Hives No current facility-administered medications for this encounter. Current Outpatient Prescriptions: ??? ibuprofen (ADVIL;MOTRIN) 200 mg tablet, Take 200 mg by mouth as needed., Disp: , Rfl: No past medical history on file. Social History Social History ??? Marital status: Single Spouse name: N/A ??? Number of children: N/A ??? Years of education: N/A Occupational History ??? Not on file. Social History Main Topics ??? Smoking status: Not on file ??? Smokeless tobacco: Not on file ??? Alcohol use Not on file ??? Drug use: Not on file ??? Sexual activity: Not on file Other Topics Concern ??? Not on file Social History Narrative Review of Systems: Review of Systems CONSTITUTIONAL: Denies: fever, chills EYES: Denies:decreased vision ENT: Denies: sore throat CARDIOVASCULAR: Denies: chest pain RESPIRATORY: Denies: shortness of breath ENDOCRINE: Denies: polydipsia/polyuria GI: Denies: nausea, vomiting, diarrhea : Denies: dysuria NEURO: Denies: lightheadedness MUSCULOSKELETAL: Denies: muscle weakness SKIN: Denies: rash Physical Exam: Patient Vitals for the past 24 hrs: BP Temp Temp src Pulse Resp SpO2 Height Weight 06/08/18 0431 112/72 37.1 ??C (98.8 ??F) Oral 79 16 98 % 162.6 cm (5' 4) 54.4 kg (120 lb) Physical Exam General: lying in bed, NAD HEENT: Normocephalic, atraumatic. MMM. Nares patent. There is a dome shaped 1.5cmx1.4vhq4xs lesion posterior to upper right incisor on hard palate. It is soft and tender to palpation. Neck: supple. Chest: Breath sounds present bilaterally. Cardio: RRR, No MRG. GI: Soft. No pain on palpation x4 quadrants. Extremities: No clubbing or edema. Skin: No rashes, warm and dry. Neuro: Grossly nonfocal. Distal CSM intact x4. Psych: Normal judgment and appropriate affect. ED Course and Medical Decision Making: - Patient seen under the supervision of Dr. Izquierdo - Nursing Note Reviewed. - Medications, allergies and past medical history reviewed - Medications given: APAP 1g PO - Procedures: None ED Course MDM Patient with mass of unclear etiology. The rapidity of onset suggests infection though fibroma, granuloma or carcinoma are not excluded. ENT consulted at 0530. Assessment and Plan: Assessment: 22 y.o. female with mass of hard palate Plan: - patient care transferred to oncoming team at 0620 - follow up ENT recs. Anticipate discharge home. Odell Rdz MD Resident 06/08/18 0639 Associated attestation - Jerrod Izquierdo MD - 06/11/2018 4:53 PM EDT ED ATTENDING ATTESTATION The patient was seen in conjunction with the resident physician. I have independently performed the marin portions of the history and physical exam. I have personally reviewed nursing notes, vital signs,and diagnostic studies including labs, imaging studies and EKGs. I have discussed the details of the case with the resident and agree with the assessment and plan as described in the resident's note, unless stated otherwise in my separate note. documented in this encounter Miscellaneous Notes Consult Note - Santos Merchant Jr., MD - 06/08/2018 10:18 AM EDT OTOLARYNGOLOGY - HEAD & NECK SURGERY CONSULT NOTE Name: Tamara Winter Age/Sex: 22 y.o. female ENT Attending: [facility] Day: 1 History of Present Illness We are seeing Tamara Winter today at the request of Tariq Angulo MD regarding oral lesion. Tamara Winter is a 22 y.o. female who had some anterior right hard palate pain on Friday morning when she woke up and then on morning she noticed a small growth. She was evaluated at an OSH and they told her it was a small tumor. She presents to [facility] this AM because it has grown significantly over the past 24hrs and has become painful to the point where sh can only tolerate a soft diet. She has a history of clenching her teeth at night. No history of dental infections, no recent fevers, no tender or loose teeth. She is otherwise healthy with no medical conditions. Last dental visitwas 2 years ago and they did not remark on any intraoral lesions. Problem List There is no problem list on file for this patient. Past Medical History History reviewed. No pertinent past medical history. Past Surgical History History reviewed. No pertinent surgical history. Medications & Allergies No current facility-administered medications on file prior to encounter. Current Outpatient Prescriptions on File Prior to Encounter Medication Sig Dispense Refill ??? ibuprofen (ADVIL;MOTRIN) 200 mg tablet Take 200 mg by mouth as needed. Oxycodone Social History [place] [facility] [id number]* Social History Social History ??? Marital status: Single Spouse name: N/A ??? Number of children: N/A ??? Years of education: N/A Occupational History ??? Not on file. Social History Main Topics ??? Smoking status: Not on file ??? Smokeless tobacco: Not on file ??? Alcohol use Not on file ??? Drug use: Not on file ??? Sexual activity: Not on file Other Topics Concern ??? Not on file Social History Narrative ??? No narrative on file Family History History reviewed. No pertinent family history. Review of Systems Pertinent positive findings discussed above. No other findings on review of constitutional, visual, cardiovascular, respiratory, gastrointestinal, genitourinary, musculoskeletal, dermatologic, neurological, psychiatric, endocrine, hematologic or immunologic systems. Vitals Last value 24hr Range Temperature: 37.1 ??C (98.8 ??F) Temp: [37.1 ??C (98.8 ??F)] Heart Rate: 79 Heart Rate: [79] Blood Pressure: 112/72 BP: (112)/(72) Respiratory Rate: 16 Resp: [16] SpO2: 98 % SpO2: [98 %] Physical Exam General: NAD, non-ill appearing Face: Symmetric without dysmorphic features Eyes: EOMI, conjunctiva healthy Ears: Auricles symmetric, no lesions Nose: Patent nares, grossly normal appearance Oral Cavity/Pharynx: right anterior hard palate 1.5cm in diameter yellow lesion with hypervascular features. Moderately tender to palpation. It feels rubbery with a cystic component. Surrounding dentition and mucosa is healthy Neck: Soft, trachea midline, no lymphadenopathy Chest: LCTAB RRR Neuro: Alert & oriented, moving extremities x 4 Labs No results for input(s): WBC, HGB, HCT, PLATELET, PT, INR, PTT, NA, K, CL, CO2, BUN, CREATININE, GLUCOSE, CALCIUM, MAGNESIUM, PHOS in the last 72 hours. ASSESSMENT & RECOMMENDATIONS Tamara Winter is a 22 y.o. 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 It has likely been there for some time but just recently became infected given its recent expansion. Before discharge in the ED the lesion spontaneously reptured and drained puss. Recommendations: 1. Follow up with oral surgery. It may be some time before she can seek care at so she was also asked to seek care with an oral surgeon who she has seen previously for wisdom tooth extraction. 2. Saline mouth rinses after each meal 3. Augmentin for 5 days 4. Tylenol and Ibuprofen for pain control 5. Please feel free to contact the Otolaryngology service with any questions or concerns. If during normal daytime hours (7a-5p), please page me at [phone]. If after-hours/weekend, please page the resident studio receptionist. Addendum: After the patient was discharge I discussed her case with who thinks the lesion is mor likely due to an infected tooth. In addition to antibiotics I will also order a CT maxillofacial for further evaluation and call the patient to update her on this. __ Santos Merchant Jr, MD, PGY3 06/08/18 10:19 AM Pager: [phone] ED Triage - Santos Donald RN - 06/08/2018 4:33 AM EDT Pt presents 4 days after onset of upper mouth swollen lesion, outside facilities not helpful to pt, swollen lesion has tripled in size, 7/10 pain. Pt is A+Ox4, respirations even and unlabored, pt is managing secretions, speaking in full sentences,smiling and laughing with boyfriend, PWD, with 2x2cm lesion in upper mouth, VSS, NAD. documented in this encounter Plan of Treatment Not on filedocumented as of this encounter Visit Diagnoses Diagnosis Mass of hard palate Swelling, mass, or lump in head and neck Oral abscess Cellulitis and abscess of oral soft tiss ues documented in this encounter Administered Medications Inactive Administered Medications - up to 3 most recent administrations Medication Order MAR Action Action Date Dose Rate Site acetaminophen (TYLENOL) tablet Given 06/08/2018 5:31 AM EDT 1,00 0 mg 1,000 mg 1,000 mg, Oral, ONCE, 1 dose, On Fri06/08/18 at 0453, Maximum dose of acetaminophen is 4000 mg from all sources in 24 hours., STAT documented in this encounter Active and Recently Administered Medications Times are shown in EDT. Scheduled Medication Order 06/06/2018 06/07/2018 06/08/2018 acetaminophen (TYLENOL) tablet 1,000 mg (COMPLETED) 0531 (Given - Provider: Evelia Lemons RN) 1,000 mg, Oral, ONCE, 1 dose, Fri06/08/18 at 0453, Maximum dose of acetaminophen is 4000 mg from all sources in 24 hours., STAT documented in this encounter Care Teams Alumni Relations Officer Relationship Specialty Start Date End Date None PCP - General 06/08/18 None documented as of this encounter
--- OUTSIDE RECORDS SUMMARY | 2022-09-02 13:39 | XMS_ITS | Encounter Summary ---
:1995 Author Organization [facility] Address [address] [place] [address] Care Team Providers Name Role Phone Unknown, Provider Primary Care Provider Encounter Details Date Type Department Care Team Description 01/22/2016 Results Only [facility]- Sandeep Neri, DO [phone] [place] [address] [place], [place] [id number] (Wo rk) Social History Tobacco Use Types Packs/Day Years Used Date Smoking Tobacco: Never Assessed Sex Assigned at Date Recorded Not on file documented as of this encounter Plan of Treatment Not on filedocumented as of this encounter Procedures Procedure Name Priority Date/Time Associated Diagnosis [facility] SURGICAL PATHOLOGY Routine 01/22/2016 20:38 Resul ts for this EDT procedure are i n the results section. documented in this encounter Results SURGICAL PATHOLOGY (01/22/2016 20:38 EDT) Component Value Ref Test Analysis Performed At [facility] Method Time Signature Pathology SURGICAL PATHOLOGY REPORT [facility] MEDICAL Report: Reports generated via electronic interface contain [facility]; CENTER however they are lacking the format of the original report. LABORATORY Caution should be taken when reading/interpreting unformat luiz reports. SERVICES Name: ? [facility] ? Accession #: ? [id number] ? : ? 1995 (Age: 20 ) ??F ? Collect Date: ? 01/22/2016 ? Location: ? [facility] ? Receive Date: ? 01/23/2016 ? Provider: SANDEEP PALACIOS DO Copy to: ? Final Pathologic Diagnosis: APPENDIX, APPENDECTOMY: - ??Acute appendicitis and periappendicitis with perforation . Document reviewed and electronically signed by: NAZIA AVALOS MD Report ??Date: 01/26/2016 12:53 By the signature above, the attending physician certifies th at he/she has personally conducted a gross and/or microscopic examin ation of the described specimens and rendered or confirmed the above diagnosis. Specimen(s) Received: Appendix Clinical History: Appendicitis Gross Description: ? Received in formalin labelled with proper patient identification (initials W, F) and appendix is a 8. 8 cm in length exudate coated appendix ranging from 0.6 cm in diameter to 1.0 cm in diameter. Minima l slightly indurated attached mesoappendix is present. ??A perforation site is present 2.6 cm from the appendiceal tip. ??The serosal surfaces are dusk y espinal-brown with hemorrhagic adhesions. The wall is hemorrhagic throughout the majority of the length of appendix. The lumen is probe patent. Representat maggie sections are submitted as follows: BLOCK CONRAD 1- ??longitudinal sections area of wall perforation 2- ??three cross sections proximal and mid appendix Heidi Silveira 01/24/2016 11:12 AM End of Report Specimen Anatomical Collection Method Collection Time Receive d Time (Source) Location / / Volume Laterality 01/22/2016 20:38 01/23/2016 EDT 20:38 EDT Sandeep Palacios DO PATHOLOGY ORDERABLES Performing Organization Address City/State/ZIP Code Phon e Number [facility] [address] [place] [address] SERVICES documented in this encounter Visit Diagnoses Not on filedocumented in this encounter Care Teams Poultry Inseminator Relationship Specialty Start Date End Date Unknown, Provider, PCP - General 01/23/16 01/28/22 documented as of this encounter
--- OUTSIDE RECORDS SUMMARY | 2022-09-02 13:39 | XMS_ITS | Encounter Summary ---
:1995 Author Organization [facility] Address [address] [place] [address] Care Team Providers Name Role Phone Unknown, Provider Primary Care Provider [facility], Alex Primary Care Provider [phone] Encounter Details Date Type Department Care Team Description 12/10/2020 Lab Requisition [facility] Outr Resulting Lab, Pathology & Laboratory Provider [facility] [address] [place], [place] [address] Social History Tobacco Use Types Packs/Day Years Used Date Smoking Tobacco: Never Assessed Sex Assigned at Date Recorded Not on file documented as of this encounter Plan of Treatment Not on filedocumented as of this encounter Procedures Procedure Name Priority Date/Time Associated Comments Diagnosis CHLAMYDIA/N. Routine 12/08/2020 15:00 Results for this GONORRHOEAE AMPLIFIED EST proced ure are in RNA the results section. documented in this encounter Results CHLAMYDIA/N. GONORRHOEAE AMPLIFIED RNA (12/08/2020 15:00 EST) [facility] Method Time Signature Gonococcus Negative Negative 12/11/2020 [facility] Result 15:22 [facility] Chlamydia Negative Negative 12/11/2020 [facility] Result 15:22 [facility] Specimen Anatomical Collection Method Collection Time Receive d Time (Source) Location / / Volume Laterality Swab ENTIRE ENDOCERVIX 12/08/2020 15:00 2020 / Unknown EST 18:15 EST Provider Outr Resulting Lab MICROBIOLOGY - GENERAL ORD ERABLES Performing Organization Address City/State/ZIP Code Phon e Number [facility] [address] [place] [address] SERVICES documented in this encounter Visit Diagnoses Not on filedocumented in this encounter Care Teams Case Management Director Relationship Specialty Start Date End Date Unknown, Provider, PCP - General 01/23/16 01/28/22 [facility], Alex PCP - General 01/29/[address] [place] [address] documented as of this encounter
--- OUTSIDE RECORDS SUMMARY | 2022-09-02 13:39 | XMS_ITS | Encounter Summary ---
:1995 [place] [address] Care Team Providers Name Role Phone None Primary Care Provider Unavailable Encounter Details Date Type Department Care Team Description 2018 Telephone Maxillofacial Surger y at [facility] [place] [address] Social History Tobacco Use Types Packs/Day Years Used Date Smoking Tobacco: Never Assessed Sex Assigned at Date Recorded Not on file documented as of this encounter Miscellaneous Notes Telephone Encounter - Wendy Peters - 2018 11:59 AM EDT Called patient left a voice message to confirm appointment with Dr. Anderson documented in this encounter Plan of Treatment Not on filedocumented as of this encounter Visit Diagnoses Not on filedocumented in this encounter Care Teams Occupational Health Professional Relationship Specialty Start Date End Date None PCP - General 06/08/18 None documented as of this encounter
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
[2022-09-02 15:11] LABS: Abs Immature Grans 0.01 10^3/uL (0.0-0.06); Absolute Basophil Count 0.04 10^3/uL (0.0-0.2); Absolute Eosinophil Count 0.06 10^3/uL (0.0-0.7); Absolute Lymphocyte Count 1.48 10^3/uL (1.2-3.4); Absolute Monocyte Count 0.41 10^3/uL (0.1-0.8); Absolute Neutrophil Count 1.66 10^3/uL (1.2-6.7); Basophils % 1.1; Eosinophils % 1.6; HCT 40.8 % (36.0-46.0); HGB 14.2 g/dL (11.2-15.7); Immature Grans % 0.3; Lymphocytes % 40.4; MCH 30.3 pg (27.0-33.0); MCHC 34.8 % (32.0-36.0); MCV 87 fL (80-95); MPV 8.9 fL (8.0-11.0); Monocytes % 11.2; Neutrophils % 45.4; Platelet Count 333 10^3/uL (130-400); RBC 4.69 10^6/uL (3.93-5.22); RDW 11.9 % (11.7-14.6); RDW-SD 38.5 fL; WBC 3.66 10^3/uL (4.4-10.8)
[2022-09-02 15:47] LABS: Hemoglobin A1C 5.1 % (<5.7)
[2022-09-02 15:49] LABS: ALT 19 U/L (14-59); AST 19 U/L (15-37); Albumin 4.3 g/dL (3.4-5.0); Alkaline Phosphatase 74 U/L (46-116); Anion Gap 5.7 mmol/L (3-11); BUN 12 mg/dL (7-18); Bilirubin, Total 0.8 mg/dL (0.2-1.0); CO2 28.3 mmol/L (21.0-32.0); CREATININE 0.8 mg/dL (0.55-1.02); Calcium 8.7 mg/dL (8.5-10.1); Chloride 102 mmol/L (98-107); Estimated GFR 104.15 (mL/min/1.73m2); FREE T4 0.99 ng/dL (0.76-1.46); Glucose 86 mg/dL (74-106); Potassium 4.2 mmol/L (3.5-5.1); Sodium 136 mmol/L (136-145); TSH 0.83 uIU/mL (0.36-3.74); Total Protein 7.4 g/dL (6.4-8.2)
== END 2022-09-02 13:37 | disposition home or self-care (01) ==
LOC: NCHCN 13:36
PROVIDERS: PCP Nurse Practitioner Family; Visit Provider Nurse Practitioner Family
DX: R42 Dizziness and giddiness (principal); G43.909 Migraine, unspecified, not intractable, without status migrainosus
CPT/HCPCS: 80053; 83036; 84439; 84443; 85025

== ENCOUNTER 2022-12-24 01:42 | Outpatient (CLI) | payer BC, SELFPAY ==
--- NOTE | 2022-12-24 | DI.MRI_ITS ---
Exam(s) MR BRAIN WO EXAM: MR BRAIN WO CLINICAL HISTORY: MIGRAINE HEADACHES G43.086 TECHNIQUE: Multiplanar multisequence MRI of the brain was performed. COMPARISON: No exams were available for comparison FINDINGS: VENTRICLES AND EXTRA AXIAL SPACES: Normal in size and morphology for the patient's age. MIDLINE SHIFT: None. CEREBRAL PARENCHYMA: No focus of restricted diffusion to suggest acute infarct. No space-occupying le gama identified. HEMORRHAGE: None. BRAINSTEM/CEREBELLUM: There do appear to be mildly low lying tonsils without definite Chiari 1 malfor mation. CALVARIUM: Normal. VISUALIZED PARANASAL SINUSES/MASTOIDS:Clear. BILL MOORE'S SLOUGH OF JUAN: Normal flow void. PITUITARY GLAND: Unremarkable. OTHER FINDINGS: None. IMPRESSION: 1. No acute process. No evidence of an intracranial mass or acute infarct. 2. Low-lying cerebellar tonsils. No evidence of a Chiari 1 malformation. DATA REPOSITORY:
== END 2022-12-24 02:02 ==
LOC: DI 01:51
PROVIDERS: PCP Nurse Practitioner Family; Visit Provider Nurse Practitioner Family
DX: G43.909 Migraine, unspecified, not intractable, without status migrainosus (principal)
CPT/HCPCS: 70551

== ENCOUNTER 2023-04-29 01:23 | Emergency (ER) | payer BC, SELFPAY ==
[2023-04-29 01:28] VITALS: BP 109/70; PULSE 102; RESP 16; TEMP 38.3; O2SAT 98
[2023-04-29] MEDS: methylPREDNISolone SUCC 125 MG VIAL IVP (02:00)
[2023-04-29] MEDS: Prochlorperazine 10 MG/2 ML VIAL IVP (02:00)
[2023-04-29] MEDS: Acetaminophen 500 MG TAB 1000 MG PO (02:00)
[2023-04-29] MEDS: diphenhydrAMINE 50 MG/ML VIAL 25 MG IVP (02:01)
[2023-04-29] MEDS: Normal Saline 1,000 ML 1000 ML IV (02:01)
[2023-04-29 02:03] LABS: Abs Immature Grans 0.05 10^3/uL (0.0-0.06); Absolute Basophil Count 0.06 10^3/uL (0.0-0.2); Absolute Lymphocyte Count 0.37 10^3/uL (1.2-3.4); Absolute Neutrophil Count 14.51 10^3/uL (1.2-6.7); Basophils % 0.4; Eosinophils % 0.1; HCT 41.2 % (36.0-46.0); HGB 14.2 g/dL (11.2-15.7); Immature Grans % 0.3; Lactate 1.2 mmol/L (0.6-1.4); Lymphocytes % 2.4; MCH 29.5 pg (27.0-33.0); MCHC 34.5 % (32.0-36.0); MCV 86 fL (80-95); MPV 8.6 fL (8.0-11.0); Monocytes % 2.5; Neutrophils % 94.3; Platelet Count 284 10^3/uL (130-400); RBC 4.81 10^6/uL (3.93-5.22); RDW 12.3 % (11.7-14.6); RDW-SD 38.8 fL; WBC 15.39 10^3/uL (4.4-10.8)
[2023-04-29 02:04] LABS: Absolute Eosinophil Count 0.02 10^3/uL (0.0-0.7); Absolute Monocyte Count 0.38 10^3/uL (0.1-0.8)
[2023-04-29 02:05] LABS: ESR 4 mm/hr (0-20)
[2023-04-29 02:21] LABS: ALT 33 U/L (14-59); AST 31 U/L (15-37); Albumin 4.2 g/dL (3.4-5.0); Alkaline Phosphatase 82 U/L (46-116); Anion Gap 11.4 mmol/L (3-11); BUN 12 mg/dL (7-18); Bilirubin, Total 0.8 mg/dL (0.2-1.0); C-Reactive Protein 3.86 mg/dL (0.0-0.3); CO2 25.6 mmol/L (21.0-32.0); Calcium 8.6 mg/dL (8.5-10.1); Chloride 102 mmol/L (98-107); Estimated GFR 79.68 (mL/min/1.73m2); Glucose 113 mg/dL (74-106); Sodium 139 mmol/L (136-145); Total Protein 7.2 g/dL (6.4-8.2)
[2023-04-29 04:28] LABS: Clarity Clear; RBC 1 /mm3 (0-5); Tube # 4; WBC 0 /uL (0-5); Xanthochromia Absent
[2023-04-29 04:31] LABS: Glucose (CSF) 70 mg/dL (40-70); Total Protein (CSF) 40 mg/dL (15-45)
--- NOTE | 2023-04-29 04:51 | W.ED.GENAD ---
Discharge Plan Disposition Patient Disposition: Home Condition: Good Discharge Details Clinical Impression: Headache, Fever Primary Care Provider: Joy Banerjee ED Provider: Baldemar Liang Home Meds and New Rx's Prescriptions: No Action Mirena 20 mcg/24 hours (5 yrs) 52 mg intrauterine device 1 device IY ONCE Rx Instructions: as a single dose hydroxyzine HCl 25 mg tablet 25 mg PO QHS PRN rizatriptan 5 mg tablet See Rx Instructions PO .COMPLEX Rx Instructions: take 1 tablet at onset of headache; if no relief, may repeat 1 tablet after at least 2 hrs PO Excedrin Extra Strength 250-250-65 mg tablet 4 tab PO DAILY PRN ibuprofen 200 mg tablet 1,000 mg PO Q6H PRN lansoprazole [Prevacid 24Hr] 15 mg capsule,delayed release(DR/EC) 15 mg PO DAILY Qty: 30 0RF Discharge Instructions Instructions: General Headache (ED) Additional Instructions: At this time your symptoms have resolved, and your cerebral spinal fluid has returned normal. We are still pending some send out culture testings from your blood. If these return positive we will contact you. In the meantime please take Tylenol and Motrin as needed for headache. Please drink plenty of fluids and stay well-hydrated. Please follow-up closely with your primary care provider for general reassessment of your symptoms in the next 48 to 72 hours. If you notice any worsening of your symptoms, or any new symptoms such as vomiting, diarrhea, fever, chills, shortness of breath, chest pain, numbness, weakness, or fainting , please return immediately to the emergency department for reevaluation. Please follow up with your primary care provider as soon as possible for reassessment and reevaluation. As always, it was a pleasure participating in your medical care today. Stand Alone Forms: Work Release Referrals: Joy Banerjee [Primary Care Provider] - Medical Decision Making This is a pleasant 27-year-old female with past medical history of anxiety, occasional depression, migraine headaches, with a past surgical history of an appendectomy, tonsillectomy, who presents today for evaluation of headache. 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 Patient noted that at 230 she felt foggy in her head, and then shortly thereafter throughout the rest of the day developed mild headache, mild neck achiness, and pain in her joints, wrists, knees and hips. Mild achiness in her back. She denies any urinary frequency. She denies any vision changes. She states that it feels similar to her migraines however the neck pain and stiffness is atypical. Normally she takes an Excedrin and her migraines go away however that did not happen today. The patient denies any headache red flags of worst headache of life, thunderclap headache, concerning family history of polycystic kidney disease, Marfan syndrome, Adrienne-Danlos syndrome, abdominal aortic aneurysm, aortic dissection, or intracranial aneurysm. Patient denies any urinary frequency or dysuria. Patient denies any dental pain. Patient denies any IV or illicit drug use. Patient denies any history of herpes or STDs or syphilis. Patient denies any history of immunocompromise state. No other complaints at this time. No other modifying factors. Exam demonstrates well-appearing female, mild fever, minimal tachycardia. Mild achiness in the neck, but no stiffness. Negative Kernig sign. No flank or CVA tenderness. No rash to suggest herpes. No neurologic deficits. Negative for Jayme Meagan pupil. No other abnormalities on exam otherwise. Patient has no concerning red flags of IV drug use, immunocompromise state, or other atypical component to suggest intracranial abscess. Differential includes migraine, viral infection, and potentially viral or bacterial meningitis. Patient is quite hesitant to perform lumbar puncture. We did discuss labs and migraine treatment and then follow-up for discussion of lumbar puncture depending on study results. She denies any tickborne illness or bites. 2 AM Laboratory work-up demonstrates white count of 15, moderate left shift. No bandemia. Lactate is normal, ESR is normal, procalcitonin is elevated at 19. CRP is elevated at 3.8. Urinalysis pending. Reassessment the patient has complete resolution of her symptoms. Headache is resolved, neck pain has resolved, neck stiffness is resolved. Aches is resolved. Vital signs remained stable. Patient feels well and feels comfortable going home. I did discuss the laboratory findings, as well as her symptomatology. Highest concern is for viral etiology but white count and procalcitonin are certainly atypical. The scenario is confounded even more by her clinical complete resolution of her symptomatology and her feeling notably well. I had a long discussion with the patient and her fianc? at bedside. We discussed risks and benefits of lumbar puncture. She has no other concerning symptoms of cough, urinary complaint, or abdominal pain. No rash. After long discussion of risks and benefits, through shared decision-making process patient is elected to proceed with lumbar puncture as a precaution although she otherwise feels well. We will perform LP, get a tick and Lyme panel, cultures, and continue to reassess. No indication for imaging at this time as the patient has complete resolution of her symptoms, no focal neurologic deficits, no concerning red flags that would indicate likelihood of intracranial abscess. 5:07 AM On reassessment patient continues to feel well, symptoms have completely resolved still, she feels well and would like to go home. CSF has returned and demonstrates 1 RBC, 0 WBCs, normal glucose, normal protein. Patient still feels very well, feels comfortable going home. We had a long discussion about cultures, tick and Lyme panel, as well as her other labs. Through a shared decision-making process, patient like to go home. Patient will follow-up closely with her primary care provider on an outpatient basis. I also made it very clear to the patient that I am on for the next few nights, that if she has any concern I would be happy to facilitate a conversation and discussion of her symptoms, or she can come back for reassessment. I have extensively reviewed the treatment plan and discharge instructions with the patient and their family. I have addressed all patient concerns at this time. The patient and family was made aware of what symptoms to monitor for that would warrant a return to the emergency department. Discussed the plan with the patient and family, they demonstrate verbal understanding and agreement with our assessment and plan at this time. The documentation in this chart was dictated using [employer] dictation software. Please excuse any dictation errors. HPI General Date/Time Provider Initiated Documentation: 04/29/23 01:26. HPI Narrative: This is a pleasant 27-year-old female with past medical history of anxiety, occasional depression, migraine headaches, with a past surgical history of an appendectomy, tonsillectomy, who presents today for evaluation of headache. 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 Patient noted that at 230 she felt foggy in her head, and then shortly thereafter throughout the rest of the day developed mild headache, mild neck achiness, and pain in her joints, wrists, knees and hips. Mild achiness in her back. Headache is described as achy in nature and transitions from the right temporal area to the back of her head and neck. She denies any urinary frequency. She denies any vision changes. She states that it feels similar to her migraines however the neck pain and stiffness is atypical. Normally she takes an Excedrin and her migraines go away however that did not happen today. The patient denies any headache red flags of worst headache of life, thunderclap headache, concerning family history of polycystic kidney disease, Marfan syndrome, Adrienne-Danlos syndrome, abdominal aortic aneurysm, aortic dissection, or intracranial aneurysm. Patient denies any urinary frequency or dysuria. Patient denies any dental pain. Patient denies any IV or illicit drug use. Patient denies any history of herpes or STDs or syphilis. Patient denies any history of immunocompromise state. No other complaints at this time. No other modifying factors. Related Data Home Medications Medication Instructions Recorded Confirmed levonorgestrel 21 mcg/24 hours (8 1 device intrauterine ONCE 05/23/20 08/06/21 yrs) 52 mg intrauterine device (Mirena) lansoprazole 15 mg capsule,delayed 15 mg PO DAILY #30 caps 06/29/22 release (Prevacid 24Hr) accqmzd-lknugcolftrgo-qjeewpsr 250 4 tab PO DAILY PRN 09/11/22 mg-250 mg-65 mg tablet (Excedrin Extra Strength) hydroxyzine HCl 25 mg tablet 25 mg PO QHS PRN 09/11/22 ibuprofen 200 mg tablet 1,000 mg PO Q6H PRN 09/11/22 rizatriptan 5 mg tablet See Rx Instructions PO .COMPLEX 09/11/22 Previous Rx's Medication Instructions Recorded lansoprazole 15 mg capsule,delayed 15 mg PO DAILY #30 caps 06/29/22 release (Prevacid 24Hr) Allergies Allergy/AdvReac Type Severity Reaction Status Date / Time hydrocodone AdvReac Nausea Verified 08/06/21 09:46 environmental allergies Allergy Mild iching, Uncoded 08/06/21 09:46 rashes General Stated Complaint: Headache SATYA: 4 Review of Systems All systems reviewed & are unremarkable except as noted in HPI and below PFSH All Active Problems (Updated 04/29/23 @ 05:10 by Baldemar Liang DO) Headache (Acute) Fever (Acute) Lymphadenopathy (Acute) Hemorrhagic cyst of right ovary (Acute) IUD surveillance (Acute) Migraine without aura (Chronic) Anxiety (Chronic 07/14/14) Medical History Anxiety Since [employer] Anxiety with depression Dizziness on standing Migraine Rib pain on left side Surgical History History of laparoscopic appendectomy Hx of oral surgery Tonsillectomy Family History Mother Heartburn Uterine fibroid Social History Smoking/Tobacco Use Status: Never Smoking risk assessment performed?: Yes Alcohol Intake: never Drug use: Never Substance use type: does not use Household members: family Housing: house Do you feel safe at home: Yes Do you feel safe in your relationship?: Yes Exam Narrative Exam Narrative: 1.Const: Well-nourished, Well-developed, appearing stated age 2.Eyes: PERRL, no conjunctival injection, and symmetrical lids. 3.ENT: Atraumatic external nose and ears. Moist MM. Neck: Symmetric, trachea midline, No thyromegaly. Patient demonstrates good movement of cervical neck. There is no nuchal rigidity, no nuchal tenderness. Patient is able to flex the neck without any difficulty but does have mild pain.. Negative Kernig's sign. 4.CVS: +S1/S2, No murmurs or gallops. Peripheral pulses 2+ and equal in all extremities. Brisk capillary refill in all extremities. 5.RESP: Unlabored respiratory effort. Clear to auscultation bilaterally. No wheezes rales or rhonchi 6.GI: Soft, Nontender/Nondistended, No hepatosplenomegaly. No guarding or rebound. 7.MSK: Normocephalic/Atraumatic, Extremities w/o deformity or ttp No cyanosis or clubbing, Normal movement of all extremities 8.Skin: Warm, Dry. No rashes or lesions. 9.Neuro: environmental protection geologist II-XII grossly intact. Sensation grossly intact, no focal neurologic deficits. All 6 cardinal planes of vision are fully intact. No evidence of rotatory or vertical nystagmus. The patient demonstrated a normal gtyllo-vlga-pwpqil, good dexterity. There was no evidence of dysdiadochokinesia. Patient was able to ambulate without difficulty. There was no wide-based gait. Romberg testing was normal. Qura-pf-lfwd testing was normal. Sensation was intact bilaterally as well as muscle strength bilaterally for all extremities. Patient was able to verbalize butter cup with no slurring, or miss pronunciation. 10.Psych: (AAO) x3. Appropriate mood and affect Course Vital Signs Vital signs: Vital Signs Temperature 38.3 C H 04/29/23 01:28 Pulse 102 H 04/29/23 01:28 Respiratory Rate 16 04/29/23 01:28 Blood Pressure 109/70 04/29/23 01:28 Pulse Oximetry 98 04/29/23 01:28 Temperature 38.3 C H 04/29/23 01:28 Temperature Source Oral 04/29/23 01:28 Pulse 102 H 04/29/23 01:28 Respiratory Rate 16 04/29/23 01:28 Respiratory Effort Normal, Non-Labored 04/29/23 01:33 Blood Pressure 109/70 04/29/23 01:28 Pulse Oximetry 98 04/29/23 01:28 Oxygen Delivery Method Room Air 04/29/23 01:28 Oxygen Flow Rate 0 04/29/23 01:28 Pain Level 6 04/29/23 01:33 Lab/Test Results Lab/Test Results: 04/29/23 03:45 Cerebrospinal Fluid Body Fluid Culture - Pending 04/29/23 03:45 Cerebrospinal Fluid Gram Stain - Pending Laboratory Tests Range/Units 04/29/23 04/29/23 04/29/23 01:56 01:56 01:56 WBC (4.4-10.8) 10^3/uL RBC (3.93-5.22) 10^6/uL Hgb (11.2-15.7) g/dL Hct (36.0-46.0) % MCV (80-95) fL MCH (27.0-33.0) pg MCHC (32.0-36.0) % RDW (11.7-14.6) % Plt Count (130-400) 10^3/uL MPV (8.0-11.0) fL Immature Gran % Neutrophils % Lymphocytes % Monocytes % Eosinophils % Basophils % Nucleated RBC % (0.0-0.3) % Absolute Neutrophils (1.2-6.7) 10^3/uL Absolute Lymphocytes (1.2-3.4) 10^3/uL Absolute Monocytes (0.1-0.8) 10^3/uL Absolute Eosinophils (0.0-0.7) 10^3/uL Absolute Basophils (0.0-0.2) 10^3/uL Xanthochromia ESR (0-20) mm/hr 4 VBG Lactate (0.6-1.4) mmol/L 1.2 Sodium (136-145) mmol/L 139 Potassium (3.5-5.1) mmol/L 4.0 Chloride (98-107) mmol/L 102 Carbon Dioxide (21.0-32.0) mmol/L 25.6 Anion Gap (3-11) mmol/L 11.4 H BUN (7-18) mg/dL 12 Creatinine (0.55-1.02) mg/dL 1.0 Est GFR (CKD-EPI 2020) (mL/min/1.73m2) 79.68 Glucose (74-106) mg/dL 113 H Calcium (8.5-10.1) mg/dL 8.6 Total Bilirubin (0.2-1.0) mg/dL 0.8 AST (15-37) U/L 31 ALT (14-59) U/L 33 Alkaline Phosphatase (46-116) U/L 82 C-Reactive Protein (0.0-0.3) mg/dL 3.86 H Total Protein (6.4-8.2) g/dL 7.2 Albumin (3.4-5.0) g/dL 4.2 Procalcitonin ng/mL 19.0 CSF Tube Number CSF Color CSF Clarity CSF WBC (0-5) /uL CSF RBC (0-5) /mm3 CSF Diff Comment CSF Glucose (40-70) mg/dL CSF Total Protein (15-45) mg/dL Range/Units 04/29/23 04/29/23 04/29/23 01:56 03:45 03:45 WBC (4.4-10.8) 10^3/uL 15.39 H RBC (3.93-5.22) 10^6/uL 4.81 Hgb (11.2-15.7) g/dL 14.2 Hct (36.0-46.0) % 41.2 MCV (80-95) fL 86 MCH (27.0-33.0) pg 29.5 MCHC (32.0-36.0) % 34.5 RDW (11.7-14.6) % 12.3 Plt Count (130-400) 10^3/uL 284 MPV (8.0-11.0) fL 8.6 Immature Gran % 0.3 Neutrophils % 94.3 Lymphocytes % 2.4 Monocytes % 2.5 Eosinophils % 0.1 Basophils % 0.4 Nucleated RBC % (0.0-0.3) % 0.0 Absolute Neutrophils (1.2-6.7) 10^3/uL 14.51 H Absolute Lymphocytes (1.2-3.4) 10^3/uL 0.37 L Absolute Monocytes (0.1-0.8) 10^3/uL 0.38 Absolute Eosinophils (0.0-0.7) 10^3/uL 0.02 Absolute Basophils (0.0-0.2) 10^3/uL 0.06 Xanthochromia Absent ESR (0-20) mm/hr VBG Lactate (0.6-1.4) mmol/L Sodium (136-145) mmol/L Potassium (3.5-5.1) mmol/L Chloride (98-107) mmol/L Carbon Dioxide (21.0-32.0) mmol/L Anion Gap (3-11) mmol/L BUN (7-18) mg/dL Creatinine (0.55-1.02) mg/dL Est GFR (CKD-EPI 2020) (mL/min/1.73m2) Glucose (74-106) mg/dL Calcium (8.5-10.1) mg/dL Total Bilirubin (0.2-1.0) mg/dL AST (15-37) U/L ALT (14-59) U/L Alkaline Phosphatase (46-116) U/L C-Reactive Protein (0.0-0.3) mg/dL Total Protein (6.4-8.2) g/dL Albumin (3.4-5.0) g/dL Procalcitonin ng/mL CSF Tube Number 4 CSF Color Colorless CSF Clarity Clear CSF WBC (0-5) /uL 0 CSF RBC (0-5) /mm3 1 CSF Diff Comment CSF Glucose (40-70) mg/dL 70 CSF Total Protein (15-45) mg/dL 40 Procedures Lumbar Puncture Time Out Performed: Yes Patient Position: sitting upright/leaning forward Skin Prep: Povidone-Iodine 1% Local Anesthetic: Lidocaine 1% Amount of anesthesia used (mL): 5 Spinal Needle Gauge: 22G Interspace Used: L4-L5 Fluid Initially Obtained: clear Complications: none
[2023-04-29 05:23] LABS: Bilirubin Negative (Negative); Blood Negative (Negative); Clarity Clear (Clear); Glucose Negative (Negative); Ketones Negative (Negative); Leukocyte Esterase Negative (Negative); Nitrite Negative (Negative); pH 6.5 (5-8)
[2023-04-29 05:26] VITALS: BP 108/68; PULSE 90; RESP 14; O2SAT 98
[2023-04-30 10:12] LABS: Lyme Ab w Rflx to Lyme Confirm Negative (Negative)
[2023-05-02 17:39] LABS: Anaplasma phagocytophilum Negative (Negative); B. miyamotoi PCR Negative (Negative); Babesia divergens/MO-1 Negative (Negative); Babesia duncani Negative (Negative); Babesia microti Negative (Negative); Ehrlichia chaffeensis Negative (Negative); Ehrlichia ewingii/canis Negative (Negative); Ehrlichia muris eauclairensis Negative (Negative)
== END 2023-04-29 05:28 | disposition home or self-care (01) ==
PROVIDERS: Emergency Provider Student in an Organized Health Care Education/Training Program; PCP Nurse Practitioner Family
DX: G43.909 Migraine, unspecified, not intractable, without status migrainosus (principal); R50.9 Fever, unspecified
CPT/HCPCS: 62270; 80053; 82945; 84145; 85652; 87040; 87798; 89050; 89051; 96361; 96374; 96375; 99285; 81003; 83605; 84157; 85025; 86140; 86618; 87070; 87205; 99284; J0780; J1200; J2930

== ENCOUNTER 2024-01-02 14:00 | Emergency (ER) | payer BC, SELFPAY ==
[2024-01-02 14:15] VITALS: BP 123/79; PULSE 94; RESP 18; TEMP 36.7; O2SAT 100
--- NOTE | 2024-01-02 14:34 | ED.GENADUL_ITS ---
Discharge Plan Disposition Patient Disposition: Home Condition: Stable Discharge Details Clinical Impression: Right rotator cuff tear Primary Care Provider: Joy Banerjee ED Provider: Lamin Chan Home Meds and New Rx's Prescriptions: Continued Mirena 20 mcg/24 hours (5 yrs) 52 mg intrauterine device 1 device IY ONCE Rx Instructions: as a single dose rizatriptan 5 mg tablet See Rx Instructions PO .COMPLEX Rx Instructions: take 1 tablet at onset of headache; if no relief, may repeat 1 tablet after at least 2 hrs PO Excedrin Extra Strength 250-250-65 mg tablet 4 tab PO DAILY PRN ibuprofen 200 mg tablet 1,000 mg PO Q6H PRN Discharge Instructions Instructions: Rotator Cuff Injury (ED) Additional Instructions: Your examination is very concerning for a chronic rotator cuff tear to from 2 years ago. In the meantime you may use paat-vff-hmpeyyi Tylenol and/or Motrin as directed. Cool and/or warm compresses every 2 hours for 20 minutes. I am going to refer you to the orthopedic team, Dr. Chavez. I have placed you on their referral list but if you do not hear from them by Friday I recommend you reaching out to their office. Please watch for new or worsening symptoms and return to the ER for any concerns. Referrals: Josue Chavez MD [ [facility] STAFF PHYSICIAN] - [facility] General Mode of arrival: ambulatory . Date/Time Provider Initiated Documentation: 01/02/24 14:29 . Limitations to Documentation: no limitations . Information obtained by: patient . History of Present Illness 28 year old F presents to the emergency department with the chief complaint of Right shoulder pain, described as moderate, with intensity rated at 6. Quality is described as aching and other (Cramping), and is localized to the right and upper extremity. Patient reports no radiation. Patient started experiencing this year(s) (2) and it has been constant. No relieving factors improve symptom(s), Movement worsens symptoms . Patient notes no other symptoms.. Patient did receive the following treatments prior to arrival, none Related Data Home Medications Medication Instructions Recorded Confirmed levonorgestrel 21 mcg/24 hours (8 1 device intrauterine ONCE 05/23/20 01/02/24 yrs) 52 mg intrauterine device (Mirena) luxfhas-liezqygapzauh-gkdnwyco 250 4 tab PO DAILY PRN 09/11/22 01/02/24 mg-250 mg-65 mg tablet (Excedrin Extra Strength) ibuprofen 200 mg tablet 1,000 mg PO Q6H PRN 09/11/22 01/02/24 rizatriptan 5 mg tablet See Rx Instructions PO .COMPLEX 09/11/22 01/02/24 Allergies Allergy/AdvReac Type Severity Reaction Status Date / Time hydrocodone AdvReac Nausea Verified 01/02/24 14:20 environmental allergies Allergy Mild iching, Uncoded 01/02/24 14:20 rashes General Stated Complaint: Orthopedic SATYA: 4 Review of Systems Constitutional Constitutional: Denies weakness Musculoskeletal Musculoskeletal: Reports arthralgias, Denies numbness, Reports stiffness and Denies tingling Integumentary/Breasts Skin/Breast: Denies erythema Neurologic Neurologic: Denies numbness, Denies tingling and Denies weakness Exam Const General: cooperative, healthy appearing, comfortable and no acute distress Orientation: alert and awake HENNV Head: normal to inspection, normocephalic and atraumatic Mouth: moist mucous membranes Eyes Conjunctivae: conjunctivae normal Neck Neck: normal visual inspection, trachea midline and supple Resp Effort & Inspection: normal respiratory effort and able to speak in complete sentences Cardio Rate: regular rate Rhythm: regular rhythm Skin General skin exam: no rashes or lesions noted Neuro General: patient alert, patient awake, patient oriented x3, moves all extremities and no focal motor deficits Cognition: normal cognition Speech: speech normal Gait: normal gait Sensory Exam: no sensory deficits noted Extrem Other: Right shoulder exam: Visual inspection without erythema, ecchymosis, swelling, obvious deformity. Skin is intact. Active range of motion yields forward flexion to about 120 degrees, contralateral arm is about 135 degrees. Once patient gets to about 95 degrees she then moves her arm laterally and is then able to further forward flex and then bring her arm back medially. Significant compensatory mechanism noted. External rotation to about 60 degrees, internal rotation patient can reach her upper lumbar, lower thoracic region. There is mild discomfort both with external rotation and empty can testing, no significant weakness. No arm drop. Negative belly press. Negative [place]. Sensation intact throughout. Normal radial pulse and brisk capillary refill Psych Appearance: grossly normal Mental Status: mental status grossly normal Course Vital Signs Vital signs: Vital Signs Temperature 36.7 C 01/02/24 14:15 Pulse 94 H 01/02/24 14:15 Respiratory Rate 18 01/02/24 14:15 Blood Pressure 123/79 01/02/24 14:15 Pulse Oximetry 100 01/02/24 14:15 Temperature 36.7 C 01/02/24 14:15 Temperature Source Oral 01/02/24 14:15 Pulse 94 H 01/02/24 14:15 Respiratory Rate 18 01/02/24 14:15 Respiratory Effort Normal 01/02/24 14:19 Blood Pressure 123/79 01/02/24 14:15 Blood Pressure Position Sitting 01/02/24 14:15 Pulse Oximetry 100 01/02/24 14:15 Oxygen Delivery Method Room Air 01/02/24 14:15 Oxygen Flow Rate 0 01/02/24 14:15 Medical Decision Making 28-year-old female, [id number], who injured her right shoulder approximately 2 years ago after falling while getting off the chairlift while snowboarding. Patient does report some body wide hypermobility at baseline. She states that her shoulder has never been the same for the past 2 years, has never sought any medical attention for this. She did try some home stretches that were recommended by her aunt. She has not taken any medication for her symptoms. Overall her range of motion and strength are well-preserved but significant compensatory mechanism noted. Patient has had 2 years to compensate for her injury. Examination is concerning for initial rotator cuff tear 2 years ago. Discussed options with patient. Patient does understand that she needs to be referred to orthopedics and will likely require an MRI. Patient was offered an x-ray today but will defer this until her orthopedic appointment. In the meantime we discussed she may use pkvd-mva-gdhdewb Tylenol and/or Motrin as well as cool and/or warm compresses. Encouraged to watch for new or worsening symptoms and return to the ER for any concerns. Standard discharge and return precautions were provided. Patient understands, is agreeable to this plan, and has no additional questions or concerns upon discharge. This documentation was generated using [id number] system, please disregard any oddities of phrase or misspellings. Medical Records Medical records reviewed: Yes I reviewed the patient's medical records. 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
== END 2024-01-02 15:16 | disposition home or self-care (01) ==
LOC: ER 15:20
PROVIDERS: Emergency Provider Physician Assistant; PCP Nurse Practitioner Family
DX: M75.101 Unspecified rotator cuff tear or rupture of right shoulder, not specified as traumatic (principal)
CPT/HCPCS: 99283

== ENCOUNTER 2024-01-21 15:38 | Outpatient (CLI) | payer BC, SELFPAY ==
--- NOTE | 2024-01-21 09:45 | DI.RAD_ITS ---
Exam(s) XR SHOULDER RT COMPLETE 2+V EXAM: XR SHOULDER RT COMPLETE 2+V CLINICAL HISTORY: RIGHT SHOULDER PAIN. TECHNIQUE: 2D digital imaging was performed. Five views. COMPARISON: No exams were available for comparison FINDINGS: BONES: No acute fracture is present. No bony destructive lesion is seen. JOINTS: The AC joint is not widened. Glenohumeral joint space is maintained. SOFT TISSUE: Normal. IMPRESSION: Unremarkable radiographs of the right shoulder. DATA REPOSITORY: RADIATION DOSE DELIVERED:
== END 2024-01-21 15:39 | disposition home or self-care (01) ==
LOC: DIORS 15:38
PROVIDERS: PCP Nurse Practitioner Family; Visit Provider Student in an Organized Health Care Education/Training Program
DX: M75.101 Unspecified rotator cuff tear or rupture of right shoulder, not specified as traumatic (principal)
CPT/HCPCS: 73030

== ENCOUNTER 2024-07-14 15:20 | Outpatient (REF) | payer BC, SELFPAY | END 2024-07-14 15:21 | disposition home or self-care (01) | LOC: LBN 15:20 | PROVIDERS: Visit Provider Obstetrics & Gynecology Gynecology | DX: N89.8 Other specified noninflammatory disorders of vagina (principal) | CPT/HCPCS: 87480; 87510; 87660 ==

== ENCOUNTER 2025-01-06 10:06 | Emergency (ER) | payer BC, SELFPAY ==
--- NOTE | 2025-01-06 10:00 | RT.EKG_ITS ---
APPROVED REPORT Exam: Resting ECG Reason for Exam: Chest Pain Patient Location: E HR:108 bpm ECG Measurements Heart Rate 108 AXIS CA 131 P 66 QRSd 77 QRS 130 QT 338 T 43 QTc 452 Conclusion Sinus tachycardia...rate> 99 Right axis deviation...QRS axis (111,269) Sinus tachycardia. When compared to prior 06/29/22 increased heart rate is noted. WD
[2025-01-06 10:10] VITALS: BP 123/80; PULSE 92; RESP 16; TEMP 36.9; O2SAT 99
[2025-01-06 10:25] VITALS: RESP 16
--- NOTE | 2025-01-06 10:52 | ED.GENADUL_ITS ---
Discharge Plan Disposition Patient Disposition: Home Condition: Good Discharge Details Clinical Impression: URI (upper respiratory infection) Primary Care Provider: Unknown,Unknown ED Provider: Raiza Mclain Home Meds and New Rx's Prescriptions: Continued rizatriptan 5 mg tablet See Rx Instructions PO .COMPLEX Rx Instructions: take 1 tablet at onset of headache; if no relief, may repeat 1 tablet after at least 2 hrs PO Excedrin Extra Strength 250-250-65 mg tablet 4 tab PO DAILY PRN ibuprofen 200 mg tablet 1,000 mg PO Q6H PRN Discharge Instructions Instructions: Upper Respiratory Infection ED Additional Instructions: As we discussed, you are negative for flu, COVID, RSV. Your exam is reassuring and most consistent with a viral illness. At this point, I do not see indication for antibiotics. However, I do encourage supportive care with Tylenol, ibuprofen as needed for discomfort or fevers, increase hydration. May also try nasal saline as this may help with some of the postnasal drip as well as the ears being plugged. May also use your previously prescribed nasal sprays as previously directed. If you develop any new or worsening symptoms please seek care urgently once again. Otherwise, please follow-up with primary care in 2 weeks for reevaluation. Stand Alone Forms: Work Release HPI General Date/Time Provider Initiated Documentation: 01/06/25 10:50 . Limitations to Documentation: no limitations . Information obtained by: patient and RN notes reviewed . History of Present Illness 29 year old F presents to the emergency department with the chief complaint of runny nose, congestions, ear pain, dry cough, described as moderate, Patient started experiencing this day(s) (4) and it has been constant. No relieving factors improve symptom(s), No exacerbating factors reported . Patient notes chest pain (states that she ahs had some chest disco mfort with coughing fits- particularly with change in temps), cough, loss of appetite and malaise; denies fever/chills, headaches, nausea/vomiting, rash, shortness of breath and weakness. Patient did receive the following treatments prior to arrival, none Related Data Home Medications ?Medication ?Instructions ?Recorded ?Confirmed [id number] 250 4 tab PO DAILY PRN 09/11/22 01/06/25 mg-250 mg-65 mg tablet (Excedrin Extra Strength) ibuprofen 200 mg tablet 1,000 mg PO Q6H PRN 09/11/22 01/06/25 rizatriptan 5 mg tablet See Rx Instructions PO .COMPLEX 09/11/22 01/06/25 Allergies Allergy/AdvReac Type Severity Reaction Status Date / Time hydrocodone AdvReac Nausea Verified 01/06/25 10:19 environmental allergies Allergy Mild iching, Uncoded 01/06/25 10:19 rashes General Stated Complaint: Chest Pain SATYA: 3 Review of Systems Constitutional Constitutional: Reports as per HPI and Denies headache(s) Eyes Eyes: Reports as per HPI, Denies eye discharge and Denies irritation ENT Ears, Nose, Mouth, and Throat: Reports as per HPI and Denies headache(s) Cardiovascular Cardiovascular: Reports as per HPI and Denies dyspnea Respiratory Respiratory: Reports as per HPI and Denies dyspnea Gastrointestinal Gastrointestinal: Reports as per HPI, Denies abdominal pain, Denies change in bowel habits, Denies nausea and Denies vomiting Integumentary/Breasts Skin/Breast: Reports as per HPI and Denies rash Neurologic Neurologic: Reports as per HPI and Denies headache(s) Exam Const General: cooperative, healthy appearing, comfortable, no acute distress, well developed and well groomed Nutritional Appearance: average body habitus and well nourished Orientation: alert and awake [facility] Head: normal to inspection, normocephalic and atraumatic Ears: hearing grossly normal bilaterally and external ears normal General nose exam: external nose normal Face and sinus: normal facial exam, sinuses nontender and face symmetric Mouth: oral mucosae normal, lip normal, tongue normal, oropharynx normal and moist mucous membranes Teeth and gingiva: dentition normal Throat: posterior oropharynx normal, tonsils normal and uvula midline Eyes General: appearance normal, both eyes and all related structures Neck Neck: normal visual inspection, full ROM and no lymphadenopathy Resp Effort & Inspection: normal respiratory effort, able to speak in complete sentences and no respiratory distress Auscultation: clear to auscultation bilaterally, no rales, no rhonchi and no wheezes Cardio Rate: regular rate Rhythm: regular rhythm Heart Sounds: S1 normal and S2 normal Skin General skin exam: no rashes or lesions noted Neuro General: patient alert and patient awake Cognition: normal cognition Speech: speech normal Gait: normal gait Course Vital Signs Vital signs: Vital Signs Temperature 36.9 C 01/06/25 10:10 Pulse 92 H 01/06/25 10:10 Respiratory Rate 16 01/06/25 10:10 Blood Pressure 123/80 01/06/25 10:10 Pulse Oximetry 99 01/06/25 10:10 Temperature 36.9 C 01/06/25 10:10 Pulse 92 H 01/06/25 10:10 Respiratory Rate 16 01/06/25 10:25 Respiratory Effort Normal 01/06/25 10:25 Respiratory Depth Normal 01/06/25 10:25 Respiratory Pattern Normal 01/06/25 10:25 Blood Pressure 123/80 01/06/25 10:10 Blood Pressure Position Supine 01/06/25 10:10 Pulse Oximetry 99 01/06/25 10:10 Oxygen Delivery Method Room Air 01/06/25 10:10 Oxygen Flow Rate 0 01/06/25 10:10 Medical Decision Making Patient is a pleasant 29-year-old otherwise healthy female, presenting today with chief complaint of runny nose, cough, congestion, sinus discomfort that began about 4 days ago. States been having some right-sided maxillary discomfort. Right ear also has felt plugged. She has not had any fevers, shortness of breath. She does report that she has had some chest discomfort but this seems to be only associated with coughing. She reports that she has had increased coughing but this sounds to be exacerbated when she is going from warm to cold environments when she was outside. She denies any GI upset, no nausea, vomiting or diarrhea. Denies being . 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 On exam, patient appears nontoxic. Hemodynamically stable. Appears well- hydrated, no acute distress. While she does indicate the right maxillary sinus is area of discomfort, none is elicited with palpation. Slight retraction of the right tympanic membrane but no indication of otitis media, more likely to be associated with eustachian tube dysfunction from postnasal drip. Lungs are clear in all espinoza. At this time, do not see any indication of bacterial infection. Patient was negative for flu, COVID, RSV. Advised this likely viral illness we did discuss the expected course. We did discuss supportive care. She has had issues with her sinuses historically and does have home medications that she can begin using once again to help with the symptoms. Return precautions were discussed. Encourage follow-up with primary care work note given at patient's request. All of her questions and concerns were addressed she is in agreement this plan. This documentation was generated using [employer] dictation system, please disregard any oddities of phrase or misspellings. 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
[2025-01-06 11:05] LABS: COVID-19 PCR Negative (Negative); Influenza A PCR Negative (Negative); Influenza B PCR Negative (Negative); RSV PCR Negative (Negative)
[2025-01-06 11:07] LABS: Source Nasopharynx
[2025-01-06 11:21] VITALS: BP 113/74; PULSE 95; RESP 16; O2SAT 98
== END 2025-01-06 11:21 | disposition home or self-care (01) ==
PROVIDERS: Emergency Provider Physician Assistant
DX: R07.9 Chest pain, unspecified (principal); J06.9 Acute upper respiratory infection, unspecified
CPT/HCPCS: 87637; 93005; 99283; 93010

== ENCOUNTER 2025-07-15 03:14 | Outpatient (CLI) | payer BC, SELFPAY ==
--- NOTE | 2025-07-15 13:10 | DI.RAD_ITS ---
Exam(s) XR RIBS LT W PA LAT CHEST EXAM: XR RIBS LT W PA LAT CHEST CLINICAL HISTORY: CHEST PAIN, R07.89. TECHNIQUE: 2D digital imaging was performed. COMPARISON: CR,XR XR CHEST 2V PA LATERAL from 06/29/2022 FINDINGS: Total four views Left ribs-two views: No evidence of left rib fracture on this 2 image study. Ipsilateral clavicle is intact. No osseous lesions evident Chest-two views: Heart size normal mediastinum is not widened. There are no infiltrates nor pleural effusions. No lung contusion. No pneumothorax. IMPRESSION: No left rib fractures nor left rib lesions. No acute pulmonary findings. DATA REPOSITORY: RADIATION DOSE DELIVERED:
== END 2025-07-15 03:34 ==
LOC: DI 03:14
DX: R07.89 Other chest pain (principal)
CPT/HCPCS: 71046; 71100